=== PATIENT | female | born 1980 | race Caucasian/White ===

== ENCOUNTER 2021-12-26 09:15 | Outpatient (CLI) | payer MEDICAID, SELFPAY ==
[2021-12-26 11:15] LABS: Albumin* 4.4 g/dL (3.3-5.0); Chloride* 105 mmol/L (96-114)
[2021-12-26 11:16] LABS: Potassium* 5.2 mmol/L (3.6-5.1); Sodium* 139 mmol/L (135-149)
[2021-12-26 11:18] LABS: Alanine Aminotransferase* 37 U/L (4-35); Alkaline Phosphatase* 77 U/L (40-150); Aspartate Amino Transferase* 34 U/L (12-35); Bilirubin Total* 0.4 mg/dL (0.1-1.5); Blood Urea Nitrogen* 12 mg/dL (5-24); Calcium* 9.4 mg/dL (8.4-10.6); Carbon Dioxide* 26 mmol/L (20-32); Cholesterol* 237 mg/dL (90-199); Creatinine* 0.7 mg/dL (0.5-1.5); Estimated Glomerular Filt Rate 110 ml/min; Glucose* 118 mg/dL (60-115); Total Protein* 7.2 g/dL (6.0-8.3); Triglycerides* 291 mg/dL (40-149)
[2021-12-26 11:19] LABS: HDL Cholesterol* 41 mg/dL (>=50); LDL Cholesterol Calculated 138 mg/dL (<100)
== END 2021-12-26 09:16 | disposition home or self-care (01) ==
LOC: NFLDREF 09:17
PROVIDERS: PCP Family Medicine; Visit Provider Family Medicine
DX: Z00.00 Encounter for general adult medical examination without abnormal findings (principal); M19.90 Unspecified osteoarthritis, unspecified site; R73.03 Prediabetes; E78.5 Hyperlipidemia, unspecified
CPT/HCPCS: 80053; 80061

== ENCOUNTER 2022-01-18 11:15 | Outpatient (RCR) | payer MEDICAID, SELFPAY | END 2022-01-18 12:29 | disposition home or self-care (01) | PROVIDERS: PCP Family Medicine; Visit Provider Orthopaedic Surgery Sports Medicine | DX: M79.651 Pain in right thigh (principal); M25.561 Pain in right knee; Z51.89 Encounter for other specified aftercare | CPT/HCPCS: 97012; 97110; 97116; 97140 ==

== ENCOUNTER 2022-03-29 13:47 | Outpatient (CLI) | payer MEDICAID, SELFPAY ==
[2022-03-29 17:14] LABS: Chloride* 104 mmol/L (96-114); Sodium* 135 mmol/L (135-149)
[2022-03-29 17:15] LABS: Potassium* 4.2 mmol/L (3.6-5.1)
[2022-03-29 17:17] LABS: Creatinine* 0.6 mg/dL (0.5-1.5); Estimated Glomerular Filt Rate 114 ml/min
[2022-03-29 17:18] LABS: Blood Urea Nitrogen* 9 mg/dL (5-24); Calcium* 9.8 mg/dL (8.4-10.6); Carbon Dioxide* 21 mmol/L (20-32); Glucose* 132 mg/dL (60-115)
== END 2022-03-29 13:48 | disposition home or self-care (01) ==
LOC: NFLDREF 13:48
PROVIDERS: PCP Family Medicine; Visit Provider Family Medicine
DX: Z01.419 Encounter for gynecological examination (general) (routine) without abnormal findings (principal); R82.998 Other abnormal findings in urine
CPT/HCPCS: 80048

== ENCOUNTER 2022-03-30 15:00 | Outpatient (CLI) | payer MEDICAID, SELFPAY | END 2022-03-30 15:01 | disposition home or self-care (01) | LOC: NFLDREF 04-03 10:58 | PROVIDERS: PCP Family Medicine; Visit Provider Family Medicine | DX: R82.998 Other abnormal findings in urine (principal) | CPT/HCPCS: 87086 ==

== ENCOUNTER 2022-07-17 09:01 | Outpatient (CLI) | payer MEDICAID, SELFPAY ==
--- NOTE | 2022-07-17 09:15 | CRLHL7_ITS ---
For Patients: As a result of the Century Cures Act, medical imaging exams and procedure reports are released immediately into your electronic medical record. You may view this report before your referring provider. If you have questions, please contact your health care provider. INDICATION: Left arm numbness. COMPARISON: None. TECHNIQUE: Sagittal T1, T2, and STIR sequences. Axial T2/gradient sequences. FINDINGS: Straightening of the normal cervical lordosis which may be secondary to muscle spasm or patient positioning. Otherwise, normal vertebral body and facet alignment. No fractures. No vertebral body loss of height. No spondylolisthesis. No ligamentous injury. Normal marrow signal. No suspicious osseous lesions. Normal cord signal. No intradural mass or lesion. C1-2: No spinal canal narrowing. C2-3: No spinal canal or neural foraminal narrowing. C3-4: No spinal canal neural foraminal narrowing. C4-5: No spinal canal or neural foraminal narrowing. C5-6: Disc degeneration posterior disc bulge or disc osteophyte complex. Partial effacement of ventral thecal sac and mild narrowing of spinal canal. Uncovertebral joint hypertrophy results in mild narrowing of the right neural foramen. No narrowing of the left neural foramen. C6-7: No spinal canal or neural foraminal narrowing. C7-T1: No spinal canal or neural foraminal narrowing. IMPRESSION: 1. Straightening of the normal cervical lordosis. Otherwise, normal alignment. No fractures. 2. Normal cord signal. 3. At C5-6, mild narrowing of spinal canal and right neural foramina. 4. No spinal canal or neural foraminal narrowing at the remaining levels Dictated by Richardson Peck MD @ 07/17/2022 11:49:52 AM (Electronically Signed)
== END 2022-07-17 09:02 | disposition home or self-care (01) ==
LOC: MRI 09:02
PROVIDERS: PCP Family Medicine; Visit Provider Family Medicine
DX: R20.0 Anesthesia of skin (principal); M50.222 Other cervical disc displacement at C5-C6 level; M54.12 Radiculopathy, cervical region
CPT/HCPCS: 72141

== ENCOUNTER 2022-07-20 08:15 | Outpatient (CLI) | payer MEDICAID, SELFPAY ==
--- NOTE | 2022-07-20 09:00 | CRLHL7_ITS ---
For Patients: As a result of the Century Cures Act, medical imaging exams and procedure reports are released immediately into your electronic medical record. You may view this report before your referring provider. If you have questions, please contact your health care provider. Indication: HEMATOCHEZIA Technique: Postcontrast CT abdomen and pelvis. 138 cc Isovue 370 intravenous contrast. Please note that all CT scans at this facility use dose modulation, iterative reconstruction, and/or weight-based dosing when appropriate to reduce radiation dose to as low as reasonably achievable. Comparison: None Findings: Lung bases are clear. Visualized breast tissue normal. Diffuse low attenuation of the hepatic parenchyma consistent with fatty infiltration. Subcentimeter hypodensity in the right hepatic lobe is too small to characterize but likely represents a small cyst or hemangioma. Gallbladder is normal. Normal spleen. Normal pancreas. Normal adrenal glands. Kidneys are normal. Normal bladder. Uterus is normal. There is a collapsing ovarian cyst measuring 1.2 cm. Left adnexal paraovarian cyst noted measuring 4.9 cm. A small amount of free fluid is located in the posterior cul-de-sac. No bowel obstruction or free air. No free fluid or adenopathy. The appendix is normal. No evidence of colonic or small bowel wall thickening. No diverticulitis. Subcentimeter umbilical hernia containing fat. Mild diverticulosis noted within the left colon. No fracture is present. Degenerative facet arthropathy lower lumbar spine. Impression: Diffuse hepatic steatosis, moderate. Mild colonic diverticulosis. No diverticulitis. No bowel obstruction or evidence of colitis/enteritis. 1.2 cm collapsing ovarian cyst in left adnexal paraovarian cyst measuring 4.9 cm. Trace physiologic free fluid posteriorly. Please note that all CT scans at this facility use dose modulation, iterative reconstruction, and/or weight-based dosing when appropriate to reduce radiation dose to as low as reasonably achievable. Dictated by Yogesh Mallory MD @ 07/20/2022 12:40:59 PM (Electronically Signed)
== END 2022-07-20 08:16 | disposition home or self-care (01) ==
LOC: CT 08:16
PROVIDERS: PCP Family Medicine; Visit Provider Internal Medicine Gastroenterology
DX: K92.1 Melena (principal); K76.0 Fatty (change of) liver, not elsewhere classified; N83.202 Unspecified ovarian cyst, left side
CPT/HCPCS: 74177; Q9967

== ENCOUNTER 2022-09-26 12:00 | Outpatient (RCR) | payer MEDICAID, SELFPAY | END 2022-12-27 23:59 | disposition home or self-care (01) | PROVIDERS: PCP Family Medicine; Visit Provider Family Medicine | DX: M54.12 Radiculopathy, cervical region (principal); Z51.89 Encounter for other specified aftercare | CPT/HCPCS: 97110; 97162 ==

== ENCOUNTER 2022-12-24 08:30 | Outpatient (CLI) | payer MEDICAID, SELFPAY | END 2022-12-24 08:31 | disposition home or self-care (01) | LOC: NFLDREF 13:04 | PROVIDERS: PCP Family Medicine; Referring Provider Family Medicine; Visit Provider Family Medicine | DX: R73.03 Prediabetes (principal); E78.5 Hyperlipidemia, unspecified; K62.5 Hemorrhage of anus and rectum | CPT/HCPCS: 80053; 80061; 84597 ==

== ENCOUNTER 2023-01-01 14:24 | Outpatient (CLI) | payer MEDICAID, SELFPAY ==
--- NOTE | 2023-01-01 14:40 | CRLHL7_ITS ---
For Patients: As a result of the Century Cures Act, medical imaging exams and procedure reports are released immediately into your electronic medical record. You may view this report before your referring provider. If you have questions, please contact your health care provider. BILATERAL SCREENING MAMMOGRAM WITH COMPUTER-AIDED DETECTION TECHNIQUE: CC and MLO views were obtained. These mammographic images have been obtained using full-field digital technique. These mammographic images were interpreted with the benefit of computer-aided detection. COMPARISON FILM: 11/15/21, 05/27/19. FINDINGS: There are scattered areas of fibroglandular density IMPRESSION: There is no radiographic evidence for malignancy. ASSESSMENT: BI-RADS Category 1: Negative RECOMMENDATION: Routine screening mammogram in 1 year. A lay language report of this examination will be provided to the patient. Yogesh Mallory M.D. Diagnostic Radiologist [email or web address] ANIA/mary Transcribed: 3:04 p.mMarco A hernandez/Dictated by: Yogesh Mallory MD @ 01/02/2023 11:52:00 AM (Electronically Signed)
== END 2023-01-01 14:25 | disposition home or self-care (01) ==
LOC: MAMMO 14:24
PROVIDERS: PCP Family Medicine; Visit Provider Family Medicine
DX: Z12.31 Encounter for screening mammogram for malignant neoplasm of breast (principal)
CPT/HCPCS: 77063; 77067

== ENCOUNTER 2023-02-12 16:28 | Outpatient (CLI) | payer MEDICAID, SELFPAY | END 2023-02-12 16:29 | disposition home or self-care (01) | LOC: NFLDREF 16:28 | PROVIDERS: PCP Family Medicine; Visit Provider Family Medicine | DX: R53.83 Other fatigue (principal) | CPT/HCPCS: 80048 ==

== ENCOUNTER 2023-02-20 10:21 | Outpatient (CLI) | payer MEDICAID, SELFPAY | END 2023-02-20 10:22 | disposition home or self-care (01) | LOC: NFLDREF 02-21 14:08 | PROVIDERS: PCP Family Medicine; Visit Provider Family Medicine | DX: R53.83 Other fatigue (principal); R79.89 Other specified abnormal findings of blood chemistry; D64.9 Anemia, unspecified; K92.2 Gastrointestinal hemorrhage, unspecified | CPT/HCPCS: 82728; 84443; 84450; 84460 ==

== ENCOUNTER 2023-02-22 09:12 | Outpatient (CLI) | payer MEDICAID, SELFPAY ==
--- NOTE | 2023-02-22 09:15 | CRLHL7_ITS ---
For Patients: As a result of the Century Cures Act, medical imaging exams and procedure reports are released immediately into your electronic medical record. You may view this report before your referring provider. If you have questions, please contact your health care provider. INDICATION: Excessive and frequent menstruation COMPARISON: none TECHNIQUE: 2D faulkner scale and color Doppler images were acquired of the pelvis using a transabdominal and transvaginal approach. FINDINGS: Sonographic images demonstrate a normal size and smooth outer contour of the uterus. Uterus measures 6.6 cm in length by 4.4 cm in AP diameter by 4.9 cm in transverse dimension. The myometrium has a normal uniform echotexture. The endometrial lining measures 7 mm in composite thickness. The right ovary measures 4.0 x 3.2 x 2.5 cm in size and the left ovary measures 4.4 x 3.1 x 3.1 cm. The ovaries demonstrate normal arterial and venous blood flow on color Doppler analysis. There are no suspicious fluid collections within the cul-de-sac. Mildly collapsing simple left ovarian cyst measuring 2.5 x 2.1 x 3.0 cm. IMPRESSION: Endometrial thickness 7 millimeters. No endometrial fluid or uterine fibroid. Incidental collapsing left ovarian cyst measuring 3.0 cm. Dictated by Yogesh Mallory MD @ 02/22/2023 10:15:31 AM (Electronically Signed)
== END 2023-02-22 09:13 | disposition home or self-care (01) ==
LOC: US 09:13
PROVIDERS: PCP Family Medicine; Visit Provider Obstetrics & Gynecology
DX: N92.0 Excessive and frequent menstruation with regular cycle (principal); R93.89 Abnormal findings on diagnostic imaging of other specified body structures; N83.202 Unspecified ovarian cyst, left side
CPT/HCPCS: 76830; 76856

== ENCOUNTER 2023-02-27 12:38 | Emergency (ER) | payer MEDICAID, SELFPAY ==
[2023-02-27 12:55] VITALS: BP 175/81; PULSE 107; RESP 18; TEMP 36.3; O2SAT 99; BMI 42.0
[2023-02-27 14:01] VITALS: BP 153/84; PULSE 92; RESP 20; O2SAT 99
[2023-02-27 14:05] LABS: Appearance Urine Clear (Clear); Bilirubin Urine Negative (Negative); Blood Urine 3+ (Negative); Color Urine Yellow (Yellow); Glucose Urine Negative (Negative); Ketones Urine Negative (Negative); Leukocyte Esterase Urine 1+ (Negative); Nitrite Urine Negative (Negative); Protein Urine 1+ (Negative); Urobilinogen Urine 0.2 (0.2-1.0)
[2023-02-27 14:08] LABS: Ur HCG Qualitative* Negative (Negative)
[2023-02-27 14:09] LABS: Basophils Absolute Auto 0.07 K/uL (0.00-0.30); Basophils Percent Auto 1.1 % (0.0-3.0); Eosinophils Percent Auto 7.2 % (0.0-7.0); Hematocrit 27.7 % (33.0-51.0); Immature Granulocytes Pct Auto 1.6 %; Lymphocytes Absolute Auto 1.29 K/uL (0.90-2.90); Lymphocytes Percent Auto 20.6 % (20-44); Mean Corpuscular HGB Conc 28 gm/dL (32-36); Mean Corpuscular Hemoglobin 23 pg (26-34); Mean Corpuscular Volume 81 fL (80-100); Monocytes Percent Auto 11.2 % (0.0-11.0); Neutrophils Absolute Auto 3.66 K/uL (1.7-7.0); Neutrophils Percent Auto 58.3 % (42.0-72.0); Platelet Count* 556 K/uL (140-440); RDW Coefficient of Variation % 20.7 % (11.5-15.5); Red Blood Count 3.41 m/uL (4.00-5.20); White Blood Count* 6.27 K/uL (4.50-11.00)
[2023-02-27 14:13] LABS: Bacteria Urine Many; Mucus Urine Many; Squamous Epithelial Cell Urine Many (None-Few)
[2023-02-27 14:14] LABS: Hemoglobin* 7.8 gm/dL (12.0-16.0); Slide Review Reflex Yes
[2023-02-27 14:18] LABS: Immature Reticulocyte Fraction 44.2 % (3.0-15.9); Reticulocyte Hemoglobin Equivi 17.5 pg (29.0-35.0); Reticulocyte Percent 6.2 % (0.5-2.0); Reticulocytes Absolute 0.21 # (0.03-0.08)
--- NOTE | 2023-02-27 14:19 | ED.GENADULT ---
HPI - General Adult General Date Seen: 02/27/23 Chief complaint: Unspecified Complaint, Adult Stated complaint: Fatigue in limbs, lightheaded Time Seen by Provider: 02/27/23 12:39 Source: patient Mode of arrival: ambulatory Limitations: no limitations History of Present Illness HPI narrative: Patient is a 42-year-old female with a history of chronic GI bleeding and vaginal bleeding, fibromyalgia, arthritis presents emergency department for fatigue and leg pain. She states the symptoms have been going on since beginning of this month. She has been seen in primary care provider initially thought it was due to her blood pressure medication and she is now the blood pressure medication. Her blood pressure has been stable throughout this time but she still feeling symptomatic. They did check hemoglobin and shows she has a hemoglobin of 7.1 with a normocytic anemia. She is going to schedule an appointment hematology when I call her back at the end of this week. She does have chronic GI bleeding and vaginal bleeding. She states whenever she has a. She has a normally large amount of vaginal bleeding along with some rectal bleeding. She has had colonoscopies in these were normal return few years ago. She states she has she was told I think that she might have endometriosis and that is why she always has a small GI bleed whenever she has her period. She states she had a small menstrual cycle this past Saturday which she states with the been normal for her time I am but was unexpected due to her being on control specifically to stop her periods. She does see Ob. States she is felt a little better since symptoms initially started but has been plateaued over the past week or so but then got worse again today. She states it is still not as worse as initially over Labor Day weekend. Denies fevers, chills, lightheadedness, dizziness, chest pain, shortness of breath, abdominal pain, diarrhea, constipation, vision changes. Related Data Home Medications Medication Instructions Recorded Confirmed diclofenac sodium 1 % topical gel 4 g topical QID PRN 07/16/22 02/22/23 multivitamin (Daily Multi-Vitamin 1 tab PO QDAY 10/16/22 02/22/23 tablet) sodium chloride 2 % eye drops 1 drp ophthalmic (eye) QDAY 10/16/22 02/22/23 (Dwayne 128) magnesium 200 mg tablet 400 mg PO QDAY 12/27/22 02/22/23 methylcellulose (laxative) 500 mg 500 mg PO QDAY 02/22/23 02/22/23 tablet (Fiber Laxative (methylcellulose)) Previous Rx's Medication Instructions Recorded progesterone micronized 200 mg 200 mg PO QHS 10 days #30 caps 09/17/22 capsule (Prometrium) celecoxib 200 mg capsule 200 mg PO QDAY #90 caps 12/27/22 duloxetine 30 mg capsule,delayed 30 mg PO DAILY #90 caps 12/27/22 release epinephrine 0.3 mg/0.3 mL 0.3 mg (0.3 mL) IM .As Needed as 12/27/22 injection, auto-injector needed PRN anaphylaxis #2 ea ferrous sulfate 325 mg (65 mg 325 mg PO Q OTHER DAY #60 tabs 02/22/23 iron) tablet,delayed release Allergies Allergy/AdvReac Type Severity Reaction Status Date / Time erythromycin base Allergy Severe Hives Verified 02/22/23 13:48 bee venom protein (honey bee) Allergy Unknown swelling Verified 02/22/23 13:48 lisinopril AdvReac Cough Verified 02/22/23 13:48 Review of Systems Status of ROS: Reports: 10 or more systems reviewed and unremarkable except as noted in History and below [facility] Medical History Anemia ?D64.9 - Anemia, unspecified (ICD-10) COVID-19 ?U07.1 - COVID-19 (ICD-10) Right trigger finger ?M65.30 - Trigger finger, unspecified finger (ICD-10) Acute hemorrhoid ?K64.9 - Unspecified hemorrhoids (ICD-10) Ovarian cyst (05/11/10) ?N83.209 - Unspecified ovarian cyst, unspecified side (ICD-10) Tobacco use (06/18/09) ?Z72.0 - Tobacco use (ICD-10) Nephrolithiasis (08/16/09) ?N20.0 - Calculus of kidney (ICD-10) Menometrorrhagia (05/11/10) ?N92.1 - Excessive and frequent menstruation with irregular cycle (ICD-10) High glucose level ?R73.09 - Other abnormal glucose (ICD-10) Ganglion cyst of left foot ?M67.472 - Ganglion, left ankle and foot (ICD-10) Dyslipidemia (05/11/10) ?E78.5 - Hyperlipidemia, unspecified (ICD-10) Surgical History S/P trigger finger release (09/21/20) ?Z98.890 - Other specified postprocedural states (ICD-10) S/P right knee arthroscopy (08/23/09) ?Z98.890 - Other specified postprocedural states (ICD-10) S/P right knee arthroscopy (11/27/21) ?Z98.890 - Other specified postprocedural states (ICD-10) Myringotomy tube(s) status (08/16/09) ?Z96.22 - Myringotomy tube(s) status (ICD-10) Status post tonsillectomy and adenoidectomy (08/16/09) ?Z90.89 - Acquired absence of other organs (ICD-10) History of colonoscopy (11/28/20) ?Z98.890 - Other specified postprocedural states (ICD-10) Family History Paternal Grandfather Diabetes Stroke Maternal Grandmother Diabetes Stroke High blood pressure Maternal Grandfather Heart problem Brother Alcohol dependence Drug abuse Paternal Grandmother Thyroid disease Aunt Thyroid disease Mother High blood pressure Father Diabetes Other Depression Social History Narrative: SOCIAL HISTORY: 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 No children. She lives with her parents. She is involved in her nieces lives. Exercise 3-5x/wk - walk, pool, stretches, PT. HABITS: No tobacco or recreational drug use. Alcohol use is about 5 drinks per week. What is your current living situation?: I presently have a place to live Problems where you live: no known problems In the past 12 months, utilities in danger of being shut off: no In past 12 months, lack of transportation kept you from medical appts, meetings, work, or getting things needed for daily living: no In the past 12 mos, have been you worried that your food would run out before you had money to buy more?: never true In the past 12 mos, the food you bought just didn't last and you didn't have money to buy more?: never true Smoking Status: Former smoker (quit jul 2007) How often does anyone, including family, friends and others, physically hurt you: never How often does anyone, including family, friends and others, insult or talk down to you: rarely How often does anyone, including family, friends and others, threaten you with harm: rarely How often does anyone, including family, friends and others, scream or curse at you: rarely Little interest or pleasure in doing things: more than half the days Feeling down, depressed, or hopeless: nearly every day Exam Narrative: Exam Narrative: Const: Well-nourished, Well-developed, in mild distress Eyes: PERRL, no conjunctival injection, and symmetrical lids ENMT: Atraumatic external nose and ears. Moist mucous membranes. Neck: Symmetric, trachea midline, No thyromegaly. CVS: RRR, No murmurs or gallops. Peripheral pulses 2+ and equal in all extremities RESP: Unlabored respiratory effort. Clear to auscultation bilaterally. GI: Nontender/Nondistended, No rebound or guarding. MSK:Extremities w/o deformity, Normal Active ROM Skin: Warm, Dry. No rashes or lesions. Neuro: Normal Muscle tone, No focal neurological deficits. Psych: Awake, Alert, & Oriented x3. Appropriate mood and affect. Const: Vital Signs, click to edit/add: Vital Signs - 24 hr 02/27/23 12:55 02/27/23 14:01 02/27/23 14:51 Temperature 97.4 F L Pulse Rate [Pulse Oximeter] 107 H 92 86 Respiratory Rate 18 20 20 Blood Pressure [Ri ght Upper Arm] 175/81 H 153/84 H 168/78 H Pulse Oximetry 99 99 98 Oxygen Delivery Me thod Room Air Room Air Room Air Course Vital Signs Vital signs: Initial Vital Signs Temperature 97.4 F L 02/27/23 12:55 Temperature Source Temporal Artery Scan 02/27/23 12:55 Pulse Rate 107 H 02/27/23 12:55 Respiratory Rate 18 02/27/23 12:55 Blood Pressure 175/81 H 02/27/23 12:55 Blood Pressure Mean 112 H 02/27/23 12:55 Pulse Oximetry 99 02/27/23 12:55 Oxygen Delivery Method Room Air 02/27/23 12:55 Vital Signs Temperature 97.4 F L 02/27/23 12:55 Pulse Rate 107 H 02/27/23 12:55 Respiratory Rate 18 02/27/23 12:55 Blood Pressure 175/81 H 02/27/23 12:55 Pulse Oximetry 99 02/27/23 12:55 Oxygen Delivery Method Room Air 02/27/23 12:55 Temperature 97.4 F L 02/27/23 12:55 Pulse Rate 86 02/27/23 14:51 Respiratory Rate 20 02/27/23 14:51 Blood Pressure 168/78 H 02/27/23 14:51 Pulse Oximetry 98 02/27/23 14:51 Oxygen Delivery Method Room Air 02/27/23 14:51 Medical Decision Making MDM Narrative Medical decision making narrative: Patient is a 42-year-old female presented to emergency department for weakness and leg pains. This has been going on for a few weeks now it has been associated to a recent anemia and has been is discovered her. She does have chronic large amounts of vaginal bleeding and it GI bleeding associated with vaginal bleeding. They believe it might be from endometriosis. She is working on scheduling hematology appointment. She describes her leg pain is very restless in nature. Patient did have a hemoglobin of 7.11 week ago. She feels worse today than she did over the past week, but not as bad as she initially did 2 weeks ago. Considering blood caused her symptoms of likely anemia we will do a CBC, CMP, coags as flu, troponin, magnesium, UA analysis of the urine test into iron studies in ferritin. Reticulocyte count also ordered. Urinalysis appears contaminated and no clear signs of UTI. Patient's lab work shows hemoglobin 7.8 which is improved for her. She has a normocytic anemia with an elevated reticulocyte count. Her iron studies are normal. CMP shows no concerning abnormalities other than slightly elevated AST and ALT. It appeared says she has a normocytic anemia felt is likely from a disease process in not iron deficiency anemia or anemia of chronic disease. This is something she needs to follow up for the outpatient but could explain all of her symptoms. Patient will be discharged home and she is agreeable to this plan. Lab Data Labs: Lab Results 02/27/23 02/27/23 Range/Units 13:40 13:55 WBC 6.27 (4.50-11.00) K/uL RBC 3.41 L (4.00-5.20) m/uL Hgb 7.8 L* (12.0-16.0) gm/dL Hct 27.7 L (33.0-51.0) % MCV 81 (80-100) fL MCH 23 L (26-34) pg MCHC 28 L (32-36) gm/dL RDW Coeff of Christian 20.7 H (11.5-15.5) % Plt Count 556 H (140-440) K/uL Neut % (Auto) 58.3 (42.0-72.0) % Lymph % (Auto) 20.6 (20-44) % Murray % (Auto) 11.2 H (0.0-11.0) % Eos % (Auto) 7.2 H (0.0-7.0) % Baso % (Auto) 1.1 (0.0-3.0) % Neut # (Auto) 3.66 (1.7-7.0) K/uL Lymph # (Auto) 1.29 (0.90-2.90) K/uL Murray # (Auto) 0.70 (0.00-0.90) K/UL Eos # (Auto) 0.50 (0.00-0.50) K/uL Baso # (Auto) 0.07 (0.00-0.30) K/uL Abs Immat Gran (auto) 0.10 (0.00-0.30) K/uL Imm/Tot Granulo (auto) 1.6 % Diff Slide Review Acceptable Review (Acceptable) Absolute Retic 0.21 H (0.03-0.08) # Percent Retic 6.2 H (0.5-2.0) % Immature Retic Fraction 44.2 H (3.0-15.9) % Retic Hgb Equivalent 17.5 L (29.0-35.0) pg Sodium 139 (135-149) mmol/L Potassium 3.9 (3.6-5.1) mmol/L Chloride 106 (96-114) mmol/L Carbon Dioxide 24 (20-32) mmol/L Anion Gap 9 (7-15) mEq/L BUN 6 (5-24) mg/dL Creatinine 0.6 (0.5-1.5) mg/dL Estimated Creat Clear 120.70 Estimated GFR 113 ml/min Glucose 106 (60-115) mg/dL Calcium 8.9 (8.4-10.6) mg/dL Magnesium 2.3 (1.5-2.6) mg/dL Iron 163 (37-170) ug/dL TIBC 639 H (265-497) ug/dL % Saturation 26 (20-50) % Total Bilirubin 0.4 (0.1-1.5) mg/dL AST 63 H (12-35) U/L ALT 56 H (4-35) U/L Alkaline Phosphatase 66 (40-150) U/L Troponin I < 0.01 L (0.01-0.04) ng/mL Total Protein 7.3 (6.0-8.3) g/dL Albumin 4.5 (3.3-5.0) g/dL Urine Color Yellow (Yellow) Urine Appearance Clear (Clear) Urine pH 6.0 (5.0-8.5) Ur Specific Clover 1.020 (1.000-1.030) Urine Protein 1+ A (Negative) Urine Glucose (UA) Negative (Negative) Urine Ketones Negative (Negative) Urine Blood 3+ A (Negative) Urine Nitrite Negative (Negative) Urine Bilirubin Negative (Negative) Urine Urobilinogen 0.2 (0.2-1.0) Ur Leukocyte Esterase 1+ A (Negative) Urine RBC 5-10 A (0-2) Urine WBC 5-10 A (0-5) Ur Squamous Epith Cells Many A (None-Few) Urine Bacteria Many A (None) Urine Mucus Many A (None) Urine HCG, Qual Negative (Negative) SARS-CoV-2 (PCR) Negative SARS-CoV-2 (Negative) Influenza Type A (PCR) Negative PCR FLU A (Negative) Influenza Type B (PCR) Negative PCR FLU B (Negative) Blood Type A Positive Antibody Screen NEGATIVE ECG Data Attestation: I personally reviewed and interpreted this ECG as follows: Prior ECG tracings: not available for review Interpretation: Normal sinus rhythm rate 90 beats per minute, normal intervals, normal axis, no ST or T-wave abnormalities. Discharge Plan Discharge Clinical Impression: Anemia Qualifiers: Anemia type: unspecified type Qualified Code(s): D64.9 - Anemia, unspecified Patient Disposition: Home, Self-Care Condition: Stable Instructions: Anemia (ED) Additional Instructions: It appears as if you have a normocytic anemia. A supporting you follow-up with Hematology so they can order further lab work to better define what is the root cause of your anemia. Does not appear to be secondary to blood loss at this time. Return for new or worsening symptoms. Prescriptions: No Action diclofenac sodium 1 % gel 4 g topical QID PRN Rx Instructions: just filled - please keep on file magnesium 200 mg tablet 400 mg PO QDAY multivitamin [Daily Multi-Vitamin] Tablet 1 tab PO QDAY Dwayne 128 2 % drops 1 drp ophthalmic (eye) QDAY celecoxib 200 mg capsule 200 mg PO QDAY Qty: 90 3RF duloxetine 30 mg capsule,delayed release(DR/EC) 30 mg PO DAILY Qty: 90 3RF epinephrine 0.3 mg/0.3 mL auto-injector 0.3 mg IM .As Needed as needed PRN (Reason: anaphylaxis) Qty: 2 0RF Fiber Laxative(methylcellulos) 500 mg tablet 500 mg PO QDAY ferrous sulfate 325 mg (65 mg iron) tablet,delayed release (DR/EC) 325 mg PO Q OTHER DAY Qty: 60 0RF progesterone micronized [Prometrium] 200 mg capsule 200 mg PO QHS 10 Days Qty: 30 12RF Follow Up/Referrals: Duglas Barker MD [Primary Care Provider] - Stand Alone Forms: [employer] Info Instructions
[2023-02-27 14:40] LABS: Slide Review Acceptable Review (Acceptable)
[2023-02-27 14:51] VITALS: BP 168/78; PULSE 86; RESP 20; O2SAT 98
[2023-02-27 14:55] LABS: PCR FLU A Negative PCR FLU A (Negative); PCR FLU B Negative PCR FLU B (Negative)
[2023-02-27 15:01] LABS: Albumin* 4.5 g/dL (3.3-5.0); Chloride* 106 mmol/L (96-114)
[2023-02-27 15:02] LABS: Potassium* 3.9 mmol/L (3.6-5.1); Sodium* 139 mmol/L (135-149)
[2023-02-27 15:04] LABS: Alanine Aminotransferase* 56 U/L (4-35); Alkaline Phosphatase* 66 U/L (40-150); Anion Gap 9 mEq/L (7-15); Aspartate Amino Transferase* 63 U/L (12-35); Bilirubin Total* 0.4 mg/dL (0.1-1.5); Carbon Dioxide* 24 mmol/L (20-32); Creatinine* 0.6 mg/dL (0.5-1.5); Estimated Glomerular Filt Rate 113 ml/min; Total Protein* 7.3 g/dL (6.0-8.3)
[2023-02-27 15:05] LABS: Blood Urea Nitrogen* 6 mg/dL (5-24); Calcium* 8.9 mg/dL (8.4-10.6); Glucose* 106 mg/dL (60-115); Iron* 163 ug/dL (37-170); Magnesium* 2.3 mg/dL (1.5-2.6)
[2023-02-27 15:14] LABS: Percent Iron Saturation 26 % (20-50); Total Iron Binding Capacity 639 ug/dL (265-497)
[2023-02-27 15:15] LABS: SARS PCR* Negative SARS-CoV-2 (Negative)
[2023-02-27 15:18] LABS: Troponin I* < 0.01 ng/mL (0.01-0.04)
[2023-02-27 15:37] VITALS: BP 156/80; PULSE 89; RESP 18; O2SAT 98
[2023-02-27 16:08] LABS: Ferritin* 8.2 ng/mL (6.24-137.0)
== END 2023-02-27 15:40 | disposition home or self-care (01) ==
PROVIDERS: Emergency Provider Student in an Organized Health Care Education/Training Program; PCP Family Medicine
DX: D64.9 Anemia, unspecified (principal)
CPT/HCPCS: 36415; 80053; 81001; 81025; 82728; 83540; 83550; 83735; 84484; 85025; 85045; 86850; 86900; 86901; 87086; 87631; 93005; 99283; 99284

== ENCOUNTER 2023-03-15 14:20 | Outpatient (CLI) | payer MEDICAID, SELFPAY ==
--- NOTE | 2023-03-15 15:30 | CRLHL7_ITS ---
For Patients: As a result of the Century Cures Act, medical imaging exams and procedure reports are released immediately into your electronic medical record. You may view this report before your referring provider. If you have questions, please contact your health care provider. INDICATION: Low back pain. Right leg pain. TECHNIQUE: Noncontrast sagittal and axial T1, T2, and sagittal STIR sequences are provided. No comparisons. FINDINGS: The overall stature, alignment and intrinsic marrow signal of the lumbar spine is within normal limits. Conus is normal. L1-2, L2-3: Unremarkable. L3-4: Mild left posterior paracentral disc bulge and endplate osteophyte with moderate bilateral facet arthropathy and prominence of the dorsal epidural fat results in moderate central canal narrowing. Neural foramina are patent. L4-5: Mild broad-based posterior disc bulge with mild bilateral facet arthropathy results in no central canal or foraminal narrowing. L5-S1: Mild posterior central disc protrusion extends 4-5 millimeters beyond the posterior vertebral body margin with associated endplate osteophyte resulting in no significant central canal narrowing. Associated moderate bilateral facet arthropathy results in moderate bilateral foraminal narrowing. IMPRESSION: 1. Moderate bilateral L5-S1 foraminal narrowing. 2. Moderate L3-4 central canal narrowing. Dictated by Alexander Napier MD @ 03/15/2023 6:14:01 PM (Electronically Signed)
== END 2023-03-15 14:21 | disposition home or self-care (01) ==
LOC: MRI 14:21
PROVIDERS: PCP Family Medicine; Visit Provider Family Medicine
DX: M79.604 Pain in right leg (principal); M51.26 Other intervertebral disc displacement, lumbar region; M51.27 Other intervertebral disc displacement, lumbosacral region; M54.50 Low back pain, unspecified
CPT/HCPCS: 72148

== ENCOUNTER 2023-04-16 20:18 | Outpatient (CLI) | payer MEDICAID, SELFPAY ==
--- OUTSIDE RECORDS SUMMARY | 2023-04-16 20:22 | XMS_ITS | Continuity of Care Document ---
Author Name Unknown Organization [facility] Address [address] [address] [place] [address] Phone Care Team Providers Care Sole Seamer Name Role Phone Danny Zeng MD Unavailable Unavailable Allergies, Adverse Reactions, Alerts Substance Reaction Status Criticality erythromycin base HivesHives Active No Informa tion erythromycin base HivesHives Active No Informa tion lisinopril Cough Active No Information WARNIN allergy(ies) could not be collected because the type is not supported. Please contact the source practice for further details. Medications Medication Instructions Dosage Effective Dates (start - stop) Status Comments celecoxib 200 mg capsule take 1 capsule by oral route every day as needed 200 MG - Active MAGNESIUM (unknown strength) take 1 tablet (500 mg) by oral route twice a week. Not Available - Active MULTIVITAMINS WITH IRON (unknown strength) (200 mcg) take 1 tablet by oral route daily Not Available - Active diclofenac 1 % topical gel apply (2G) by topical route every day as needed 2 G - Active Dwayne 128 5 % eye ointment instill 1 drop by in eyes route every day 1 drop - Active EPINEPHRINE (unknown strength) inject 0.3 milliliter by intramuscular route once as needed for anaphylaxis Not Available - Active losartan 50 mg tablet take 1 tablet by oral route every day 50 MG - Active duloxetine 30 mg capsule,delayed release take 1 capsule by oral route every day 30 MG - Active Systane (PF) 0.4 %-0.3 % eye drops in a dropperette - Active medroxyprogesterone 10 mg tablet take 1 tablet by oral route every day for ten days every three months 10 MG - Active acetaminophen 500 mg capsule take 2 capsule by oral route every 6 hours as needed 1000 MG - Active Procedures Procedure Date Established Level 4 Hemorrhoid Banding Established Level 4 Hemorrhoid Banding Hemorrhoid Banding Colonoscopy Flex; Dx (sep Pro) 22 Small Bowel PillCam Capsule 1st Day Ugi Endo; W/bx 1/mx Level Iv-surg Path Gross/micro 21 Telephone E&M III 21-30 Min HARPAL Advance Directives Directive Yes / No Effective Date File Name No Information Encounters Encounter Description Practice Location Reason(s) For Visit Diagnoses Date Provider Providers Copied on Encounter [facility], [address] [address], [place], [place], [id number], [place] tel:[phone] [facility] No Information 3 Karri Delgado. [address] [facility], [facility] [address], [place], [place], [id number] , [place]. tel:[phone] Established Level 4 [facility], [address] [address], [place], [id number], [place] tel:[phone] [facility] GI Symptoms or Concerns (chief complaint) HematocheziaRight shoulder pain, unspecified chronicity 3 Karri Delgado. [address] [facility], [place], [place], [address] , [place]. [phone] Referring Provider: Referral Self. [facility], [address] [address], [place], [address], [place] tel:[phone] [facility] GI Symptoms or Concerns (chief complaint) Other hemorrhoids 2 Jg Crocker. [address] [facility], [place], [place], [address] , [place]. tel: [phone] Referring Provider: Referral Self. Established Level 4 [facility], [address] [address], [place], [id number], [place] tel:[phone] [facility] GI Symptoms or Concerns (chief complaint) HematocheziaAnal fissure 2 Karri Delgado. [address] [facility], [place], [address] , [place]. tel: [phone] Referring Provider: Referral Self. [facility], [address] [address], [place], [address], [place] tel:[phone] [facility] No Information 2 Karri Delgado. [address] [facility], [place], [address] , [place]. tel: [phone] [facility], [address] [address], [place], [address], [place] tel:[phone] [facility] GI Symptoms or Concerns (chief complaint) Other hemorrhoids 2 Jg Crocker. [address] [facility], [place], [address] , [place]. tel: [phone] Referring Provider: Referral Self. [facility], [address] [address], [place], [address], [place] tel:[phone] [facility] GI Symptoms or Concerns (chief complaint) Anal skin tagInternal hemorrhoids 2 Narciso Plummer. [address] [facility], [place], [address] , [place]. tel: [phone] Referring Provider: Referral Self. [facility], [address] [address], [place], [address], [place] tel:[phone] [facility] Gastrointestinal hemorrhage, unspecified 2 Karri Delgado. [address] [facility], [place], [address] , [place]. tel: [phone] [facility], [address] [address], [place], [address], [place] tel:[phone] [facility] GI Symptoms or Concerns (chief complaint) HematocheziaMelena 2 Karri Delgado. [address] [facility], [place], [address] , [place]. tel: [phone] Referring Provider: Duglas Barker MD, [address] [place] [address], [address]. tel:[phone] [facility], [address] [address], [place], [address], [place] tel:[phone] [facility] Gastrointestinal hemorrhage, unspecified 1 [facility]. [address] [facility], [place], [address] , [place]. tel: [phone] Referring Provider: Danny Ferro, [address] [facility] [address], [place], [address] . tel:[phone] [facility], [address] [address], [place], [address], [place] tel:[phone] [facility] No Information 1 Karri Delgado. [address] [facility] [address], [place], [address] , [place]. tel: [phone] Referring Provider: Referral Self. [facility], [address] [address], [place], [address], [place] tel:[phone] [facility] No Information 1 Cristina Mcmahon. [address] [facility] [address], [place], [address] , [place]. tel: [phone] [facility], [address] [address], [place], [address], [place] tel:[phone] [facility] Gastrointestinal hemorrhage, unspecified gastrointestinal hemorrhage typeGastrointestina l hemorrhage, unspecified 1 Karri Delgado. [address] [facility], [facility] [address], [facility] [place], [address] , [place]. [phone] Referring Provider: Referral Self. Telephone E&M III 21-30 Min HARPAL [facility], [address] [address], [place], [address], [place] tel:[phone] [facility] GI Symptoms or Concerns (chief complaint) Gastrointestinal hemorrhage, unspecified gastrointestinal hemorrhage type 1 Karri Delgado. [address] [facility], [facility] [address], [place], [address] , [place]. [phone] Referring Provider: Edilia Vera, [address], [place], [address]. tel:[phone] [facility], [address] [address], [place], [address], [place] tel:[phone] [facility] No Information 1 Cristina Mcmahon. [address] [facility], [facility] [address], [facility] [place], [address] , [place]. [phone] Family History Family Member Type Diagnosis Age At Onset Father Problem (finding) asthma Brother Problem (finding) alcoholism Father Problem (finding) GERD Immunizations Vaccine Date Status Comments SARS-COV-2 (COVID-19) vaccin e, mRNA, spike protein, LNP, bivalent booster, preservative free, 30 mcg/0.3 mL dose, dafne-sucrose formulation administered Note: [employer] bi-d irectional interface ; Source: Other Registry SARS-COV-2 (COVID-19) vaccin e, mRNA, spike protein, LNP, preservative free, 30 mcg/0.3mL dose administered Note: [employer] bi-direct ional interface ; Source: Other Registry SARS-COV-2 (COVID-19) vaccin e, mRNA, spike protein, LNP, preservative free, 30 mcg/0.3mL dose administered Note: [facility] bi-direct ional interface ; Source: Other Registry SARS-COV-2 (COVID-19) vaccin e, mRNA, spike protein, LNP, preservative free, 30 mcg/0.3mL dose administered Note: [facility] bi-direct ional interface ; Source: Other Registry tetanus toxoid, reduced diphtheria toxoid, and acellular pertussis vaccine, adsorbed administered Note: [facility] b i-directional interface ; Source: Other Registry Payers Payer name Insurance type Covered constitution party ID Authormanuela apple(s) Chantale WEINER [id number] Social History Type Description Quantity Date Captured Comments Sex Female Smoking Status No Information Chief Complaint And Reason For Visit No Information Reason For Referral Reason For Referral No Information Plan Of Treatment Date Type Action Status Referral Ordered: CT Abdomen And Pelvis WITH Contrast Appointment date/timeframe: 08/01/2022 ordered Referral Ordered: Hemorrhoid Banding Appointment date/timeframe: 09/05/2021 ordered Referral Ordered: Small Bowel PillCam Appointment date/timeframe: 03/27/2021 ordered Referral Ordered: EGD Appointment date/timeframe: 02/24/2021 ordered History Of Present Illness Encounter Date Complaint History Of Prese nt Illness GI Symptoms or Concerns Gianna is a very pleasant 42-year-old female with whom I am conducting a virtual visit. The patient gave informed consent for the visit, confirmed she was in a private location. The patient has been dealing with issues with hematochezia for the last 2 years. Initially, she had had a colonoscopy in [place] that showed a questionable AVM in the right side of the colon. Ultimately, we pursued upper endoscopy here on February 24, 2021, that was unremarkable. A PillCam study was done on March 27, 2021, and that showed no significant abnormalities. There was a very questionable finding in the terminal ileum that was non-bleeding of questionable significance. The patient had a colonoscopy on June 16, 2021. No right-sided AVM was noted, although it is certainly possible this was not seen, and was not actually bleeding at that time. Since that time, the patient has undergone banding, most recently in April of this year. She can differentiate 2 types of bleeding and states GI Symptoms or Concerns GI Symptoms or Concerns Gianna Adan is a pleasant 41-year-old female, who I am seeing in a virtual visit. The patient gave informed consent for the visit and confirmed she was in a private location. The patient has been following with me since last year regarding hematochezia of unknown etiology. She had a colonoscopy in [place] that showed a questionable angioectasia in November 2020. Subsequently, we performed an upper endoscopy on February 24, which showed no significant abnormalities. After much discussion, we pursued a PillCam, which showed a very questionable finding in the distal small bowel, but not an obvious bleeding point. Colonoscopy was repeated with the idea of possibly treating the angioectasia noted in [place]; however, after review of the pictures, this appears to have been scope trauma and there was no evidence of right-sided angioectasia in the colon on June 10 of this year. Since then, the patient has undergone banding x2, which was somewhat complicated and described GI Symptoms or Concerns GI Symptoms or Concerns GI Symptoms or Concerns GI Symptoms or Concerns Gianna Adan is a pleasant 40-year-old female who is referred by Dr. Edilia Heller for further evaluation of gastrointestinal bleeding of unknown etiology. This was conducted as a telephone visit. The patient gave consent for the visit and confirmed that she was in a private location so as not to reveal private health information. The patient states that she has been having menorrhagia for at least 10 years, but over the last 6 months she has noted some rectal bleeding. She had a colonoscopy that was performed on November 28, which showed 1 sessile serrated adenoma, 3 hyperplastic polyps and a non-bleeding angioectasia with hepatic flexure. Internal hemorrhoids were noted, however, the patient states that she is able to tell the difference between her hemorrhoidal bleeding and this occult etiology bleeding. Her hemorrhoidal bleeding tends to be very bright red blood that is only associated with stooling, however, this bleeding she describes as being dark and can include clots. It Functional Status Date Functional Assessmen t No Information Instructions Date Instruction Additional Infor taty 1. Start fiber suppl ement Metamucil or Konsyl 2 tablespoons every morning. If not well tolerated try Citrucel or Benefiber. Drink 8 to 10 glasses of water a day. 2. Avoid pushing and straining on stools. Avoid sitting on the toilet for a long time.3. Follow up but wait 1 - 2 months Related to Internal hemorrhoids Assessments Type Assessment Date No Information Patient Care Teams Name Effective Dates (start - stop) Status Members No Information
== END 2023-04-16 20:19 | disposition home or self-care (01) ==
LOC: SLEEP 20:20
PROVIDERS: PCP Family Medicine; Visit Provider Otolaryngology
DX: G47.33 Obstructive sleep apnea (adult) (pediatric) (principal)
CPT/HCPCS: 95811

== ENCOUNTER 2023-08-14 10:00 | Outpatient (CLI) | payer MEDICAID, SELFPAY | END 2023-08-14 10:01 | disposition home or self-care (01) | LOC: NFLDREF 10:01 | PROVIDERS: PCP Family Medicine; Visit Provider Otolaryngology | DX: G25.81 Restless legs syndrome (principal) | CPT/HCPCS: 82728 ==

== ENCOUNTER 2023-10-16 14:01 | Outpatient (CLI) | payer MEDICAID, SELFPAY ==
--- OUTSIDE RECORDS SUMMARY | 2023-10-16 14:06 | XMS_ITS | Clinical Summary ---
Author Name Unknown Organization [facility] Address [address] [place] [address] Care Team Providers Care Dry Pan Charger Name Role Phone Unavailable Primary Care Provider Unavailabl e Source Comments You are receiving this document as you are listed as the primary care provider,follow-up provider, or the patient has been referred to you for consultation.This is in compliance with the Medicare and[facility] EHR Incentive Program,which states Providers who transition their patient to another setting of careor provider of care or refers their patient to another provider of care shouldprovide summary care record for each transition of care or referral. [facility] Allergies Active Allergy Reactions Criticality Noted Date Comments Bee Venom Edema,generalized High 10/22/2019 Erythromycin Hives High 10/22/2019 Medications Medication Sig Dispensed Refills Start Date End Date Status losartan (COZAAR) 25 MG tablet Take 25 mg by mouth daily. Active celecoxib (CELEBREX) 100 MG capsule Take 100 mg by mouth daily. Active Multiple Vitamins-Iron (MULTIVITAMIN/IRON OR) Ac tive Active Problems Problem Noted Date Diagnosed Date Primary osteoarthritis of both knees 10/22/2019 Essential hypertension 10/22/2019 Overweight 10/22/2019 Chronic pain syndrome 10/22/2019 Social History Tobacco Use Types Packs/Day Years Used Date Smoking Tobacco: Never Assessed Sex and Gender Information Value Date Recorded Sex Assigned at Not on file Gender Identity Not on file Sexual Orientation Not on file Last Filed Vital Signs Vital Sign Reading Time Taken Comments Blood Pressure 187/110 10/22/2019 9:41 AM CDT Pulse 99 10/22/2019 9:41 AM CDT Temperature 36.8 ??C (98.2 ??F) 10/22/2019 9:41 AM CD T Respiratory Rate - - Oxygen Saturation - - Inhaled Oxygen Concentration - - Weight 119 kg (262 lb 4.8 oz) 10/22/2019 9:41 AM CDT Height 174.2 cm (5' 8.6) 10/22/2019 9:41 AM CDT Body Mass Index 39.19 10/22/2019 9:41 AM CDT Plan of Treatment Health Maintenance Due Date Last Done Comments Cervical Cancer Screening Due 1978 Colon Cancer Screening Plan Due 1978 Hep C Screening (Preventive Services) 1978 HIV Screening (Preventive Services) 1994 Adult Preventive Visit 1996 DTaP/Tdap/Td (1 - Tdap) 1997 HepB (1) 1997 COVID-19 Vaccine ( - 2022-2 4 season) 2023 Cholesterol 2023 Influenza (Season Ended) 2024 Zoster/Shingles (1 of 2) 2028 HPV Vaccine Aged Out No longer eligi ble based on patient's age to complete this topic HepA Aged Out No longer eligi ble based on patient's age to complete this topic Hib Aged Out No longer eligi ble based on patient's age to complete this topic IPV (Polio) Aged Out No longer eligi ble based on patient's age to complete this topic MCV4 Aged Out No longer eligi ble based on patient's age to complete this topic Pneumococcal Aged Out No longer eligi ble based on patient's age to complete this topic
--- OUTSIDE RECORDS SUMMARY | 2023-10-16 14:06 | XMS_ITS | Clinical Summary ---
Author Name Unknown Organization [facility] Address [place], [place] [address] Care Team Providers Care Commissary Representative Name Role Phone Duglas Barker MD Primary Care Provider [phone] Allergies Active Allergy Reactions Criticality Noted Date Comments Hymenoptera Allergenic Extract 09/18 Erythromycin Hives 09/19/2007 Medications Medication Sig Dispensed Refills Start Date End Date Status TYLENOL 325 MG TAB PRN 0 09/19/2007 Active Social History Tobacco Use Types Packs/Day Years Used Date Smoking Tobacco: Former Alcohol Use Standard Drinks/Week Comments Not Asked 0 (1 standard drink = 0.6 oz pur e alcohol) Sex and Gender Information Value Date Recorded Sex Assigned at Not on file Gender Identity Not on file Sexual Orientation Not on file Obstetrics History Last Filed Vital Signs Vital Sign Reading Time Taken Comments Blood Pressure 135/83 09/19/2007 11:10 AM CDT Pulse 74 09/19/2007 11:10 AM CDT Temperature 36.6 ??C (97.9 ??F) 09/19/2007 11:10 AM C DT Respiratory Rate - - Oxygen Saturation - - Inhaled Oxygen Concentration - - Weight 99.3 kg (219 lb) 09/19/2007 11:10 AM CDT Height - - Body Mass Index - - Plan of Treatment Health Maintenance Due Date Last Done Comments Tdap 1989 Depression screening for age 12+ 1990 HIV for age 15-65 1993 BMI (ht and wt on same day) for age 18+ 1996 Hepatitis C screening for age 18-79 1996 Tetanus booster 1998 Pap test for age 21-65 05/21/2022 05/21/2019, 2018 COVID-19 vaccine series ( season) 2023 05/17/2022, 07/20/2021, 01/10/2021, Additional history exists Colonoscopy through age 75 2023 Lipids for age 45-75 2023 Mammogram for age 45-75 2023 Influenza for age 9-49 02/09/2024 Pneumococcal series for age 6-64 Aged Out No longer eligible based on patient's age to complete this topic Procedures Procedure Name Priority Date/Time Associated Diagnosis Comments INSIDE SALES PERSON THIN PREP PAP SCREEN IMAGED Routine 05/21/2019 8:23 AM ROCK SPLITTER from Last 3 Months or Most Recently Relevant to Health Maintenance Results * INSIDE SALES PERSON THIN PREP PAP SCREEN IMAGED (05/21/2019 8:23 AM ROCK SPLITTER) Case Report Gynecologic Cytology Report ? Case: [id number] ? Authorizing Provider: ??Duglas Barker MD ?Collected: ? 05/21/2019 0823 ? Ordering Location: ? [facility] ?Received: ?05/22/2019 0940 ? First Screen: ?Jo Berrios ? Specimen: ?INSIDE SALES PERSON ThinPrep Vial Screening, Cervical/Vaginal ? 05/31/2019 9:37 AM [facility] INTERPRETATION /RESULT NEGATIVE FOR INTRAEPITHELIAL LESION OR MALIGNANCY (NIL) (none) 05/31/2019 9:37 AM [facility] IMEN ADEQUACY Satisfactory for evaluation Endocervical component present 05/31/2019 9:37 AM [facility] HPV REQUEST HPV and PAP 05/31/2019 9:37 AM [facility] Date of LMP 05/31/2019 9:37 AM [facility] Comment:02/2019 Additional Information 05/31/2019 9:37 AM [facility] Comment: Interpreted at [facility] - [address], [place] [address] Automated Review Failed 05/31/2019 9:37 AM [facility] Comment:Processing failed, m anual screening required. ThinPrep Imaging System, [employer] ANCILLARY TESTING INSIDE SALES PERSON HPV Ordered, Please see separate report 05/31/2019 9:37 AM [facility] Note The pap test is a screening technique, not a diagnostic procedure. ??It is used primarily to screen for squamous cancers and precursor lesions. ??Published studies have shown that it is subject to both false negative and false positive results. ??The pap test should not be used as the sole means to diagnose or exclude pre-malignant and malignant lesions. Cytology is screened and interpreted at [facility] - [address], [place] [address] and [facility] - [address] [place] [address]; [place] [address] and [facility] - [address]; [place] [address] and [facility] [address]; [place] [address] 05/31/2019 9:37 AM [facility] Other (Cervical/Vagina l) 05/21/2019 8:23 AM ROCK SPLITTER 05/22/2019 9:40 AM ROCK SPLITTER Duglas Barker MD PATHOLOGY/CYTOLOGY [facility] [facility] [address] [place] [address], from Last 3 Months or Most Recently Relevant to Health Maintenance Care Teams Commissary Representative Relationship Specialty Start Date End Date Duglas Barker MD [address] [place] [id number] PCP - General Family Practice 11/28/22
== END 2023-10-16 14:02 | disposition home or self-care (01) ==
PROVIDERS: PCP Family Medicine; Visit Provider Internal Medicine
DX: D64.9 Anemia, unspecified (principal)
CPT/HCPCS: 82728; 85045

== ENCOUNTER 2023-10-18 11:14 | Outpatient (CLI) | payer MEDICAID, SELFPAY ==
--- OUTSIDE RECORDS SUMMARY | 2023-10-18 11:19 | XMS_ITS | Clinical Summary ---
Author Name Unknown Organization [facility] Address [place], [place] [address] Care Team Providers Care Picker Tender Helper Name Role Phone Duglas Barker MD Primary Care Provider [phone] Allergies Active Allergy Reactions Criticality Noted Date [...] Procedure Name Priority Date/Time Associated Diagnosis Comments LOSS CONTROL TECHNICIAN THIN PREP PAP SCREEN IMAGED Routine 05/21/2019 8:23 AM PULLMAN CAR CLERK from Last 3 Months or Most Recently Relevant to Health Maintenance Results * LOSS CONTROL TECHNICIAN THIN PREP PAP SCREEN IMAGED (05/21/2019 8:23 AM PULLMAN CAR CLERK) Case Report Gynecologic Cytology Report ? Case: [id number] ? Authorizing Provider: ??Duglas Barker MD ?Collected: ? 05/21/2019 0823 ? Ordering Location: ? [facility] ?Received: ?05/22/2019 0940 ? First Screen: ?Jo Berrios ? Specimen: ?LOSS CONTROL TECHNICIAN ThinPrep Vial Screening, Cervical/Vaginal ? 05/31/2019 9:37 AM [facility] INTERPRETATION /RESULT NEGATIVE FOR INTRAEPITHELIAL LESION OR MALIGNANCY (NIL) (none) 05/31/2019 9:37 AM [facility] IMEN ADEQUACY Satisfactory for evaluation Endocervical component present 05/31/2019 9:37 AM [facility] HPV REQUEST HPV and PAP 05/31/2019 9:37 AM [facility] Date of LMP 05/31/2019 9:37 AM [facility] Comment:02/2019 Additional Information 05/31/2019 9:37 AM [facility] Comment: Interpreted at [facility] - [address], [place] [address] Automated Review Failed 05/31/2019 9:37 AM [facility] Comment:Processing failed, m anual screening required. ThinPrep Imaging System, [employer] ANCILLARY TESTING LOSS CONTROL TECHNICIAN HPV Ordered, Please see separate report 05/31/2019 9:37 AM [facility] Note The pap test is a [...] lesions. Cytology is screened and interpreted at [facility] - [address], [place] [address] and [facility] - [address] [place] [address]; [place] [address] [address] [facility] - [address]; [place] [address] and [facility] [address]; [place] [address] 05/31/2019 9:37 AM [facility] Other (Cervical/Vagina l) 05/21/2019 8:23 AM PULLMAN CAR CLERK 05/22/2019 9:40 AM PULLMAN CAR CLERK Duglas Barker MD PATHOLOGY/CYTOLOGY [facility]ATORY [address] [place] [address], from Last 3 Months or Most Recently Relevant to Health Maintenance Care Teams Picker Tender Helper Relationship Specialty Start Date End Date Duglas Barker MD [address] [place] [id number] PCP - General Family Practice 11/28/22
--- OUTSIDE RECORDS SUMMARY | 2023-10-18 11:19 | XMS_ITS | Clinical Summary ---
Author Name Unknown Organization [facility] Address [address] [place] [address] Care Team Providers Care Maintainer Plant Name Role Phone Unavailable Primary Care Provider Unavailabl e Source Comments You are receiving this document as you are listed as the primary care provider,follow-up provider, or the patient has been referred to you for consultation.This is in compliance with the Medicare and[facility] EHR Incentive Program,which states Providers who transition their patient to another setting of careor provider of care or refers their patient to another provider of care shouldprovide summary care record for each transition of care or referral. [facility] Allergies Active Allergy Reactions Criticality Noted Date [...]
== END 2023-10-18 11:15 | disposition home or self-care (01) ==
LOC: LAB 11:16
PROVIDERS: PCP Family Medicine; Visit Provider Internal Medicine
DX: R79.0 Abnormal level of blood mineral (principal)
CPT/HCPCS: 36415; 99195

== ENCOUNTER 2023-10-31 10:13 | Outpatient (CLI) | payer MEDICAID, SELFPAY ==
--- NOTE | 2023-10-31 10:15 | US_ITS ---
Patient: ASHLI RIOS Facility:?[facility] Patient ID:?[id number] Site Patient ID:?[id number]. Site :?1980 Study:?US-Extremity Left LEV-10/31/2023 10:43:52 AM Ordering Physician:Joyce Ardon Final Report: INDICATION: Leg pain. TECHNIQUE: Ultrasound venous duplex lower left extremity. Compression venous exam was performed using faulkner-scale, color Doppler, and spectral Doppler analysis. COMPARISON: None available. FINDINGS: Deep veins: Sonographic imaging demonstrates the left common femoral, deep femoral, superficial femoral, popliteal, posterior tibial, peroneal and the contralateral right common femoral veins to be fully compressible with normal color Doppler blood flow. Superficial veins: Visualized portions of the greater saphenous vein are fully compressible. IMPRESSION: Normal left lower extremity venous ultrasound, no sign of deep venous thrombosis. Dictated by Clementine Quach MD @ 10/31/2023 11:07:58 AM Signed by:?Clementine Quach MD @10/31/2023 11:07:58 AM (Electronic Signature)
--- OUTSIDE RECORDS SUMMARY | 2023-10-31 10:17 | XMS_ITS | Clinical Summary ---
Author Organization [facility] Address [place], [place] [address] Care Team Providers Care Travel Guide Name Role Phone Duglas Barker MD Primary Care Provider [phone] Allergies Active Allergy Reactions Criticality Noted Date [...] Procedure Name Priority Date/Time Associated Diagnosis Comments JOB PUTTER UP AND TICKET PREPARER THIN PREP PAP SCREEN IMAGED Routine 05/21/2019 8:23 AM FOOD SAFETY TECHNICIAN from Last 3 Months or Most Recently Relevant to Health Maintenance Results * JOB PUTTER UP AND TICKET PREPARER THIN PREP PAP SCREEN IMAGED (05/21/2019 8:23 AM FOOD SAFETY TECHNICIAN) Case Report Gynecologic Cytology Report ? Case: [id number] ? Authorizing Provider: ??Duglas Barker MD ?Collected: ? 05/21/2019 0823 ? Ordering Location: ? [facility] ?Received: ?05/22/2019 0940 ? First Screen: ?Jo Berrios ? Specimen: ?JOB PUTTER UP AND TICKET PREPARER ThinPrep Vial Screening, Cervical/Vaginal ? 05/31/2019 9:37 AM [facility] INTERPRETATION /RESULT NEGATIVE FOR INTRAEPITHELIAL LESION OR MALIGNANCY (NIL) (none) 05/31/2019 9:37 AM [facility] IMEN ADEQUACY Satisfactory for evaluation Endocervical component present 05/31/2019 9:37 AM [facility] HPV REQUEST HPV and PAP 05/31/2019 9:37 AM [facility] Date of LMP 05/31/2019 9:37 AM [facility] Comment:02/2019 Additional Information 05/31/2019 9:37 AM [facility] Comment: Interpreted at [facility] - [address], [place] [address] Automated Review Failed 05/31/2019 9:37 AM [facility] Comment:Processing failed, m anual screening required. ThinPrep Imaging System, [employer] ANCILLARY TESTING JOB PUTTER UP AND TICKET PREPARER HPV Ordered, Please see separate report 05/31/2019 9:[address] [facility] Note The pap test is a [...] lesions. Cytology is screened and interpreted at [facility] - [address], [place] [address] and [facility] - [address] [place] [address]; [place] [address] and [facility] - [address]; [place] [address] [facility] [address]; [place] [address] 05/31/2019 9:37 AM [facility] Other (Cervical/Vagina l) 05/21/2019 8:23 AM FOOD SAFETY TECHNICIAN 05/22/2019 9:40 AM FOOD SAFETY TECHNICIAN Duglas Barker MD PATHOLOGY/CYTOLOGY [facility] [address] [employer] [address] [place] [address], from Last 3 Months or Most Recently Relevant to Health Maintenance Care Teams Travel Guide Relationship Specialty Start Date End Date Duglas Barker MD [address] [place] [address] PCP - General Family Practice 11/28/22
--- OUTSIDE RECORDS SUMMARY | 2023-10-31 10:17 | XMS_ITS | Clinical Summary ---
Author Organization [facility] Address [address] [address] Care Team Providers Care Funding Coordinator Name Role Phone Unavailable Primary Care Provider Unavailabl e Source Comments You are receiving this document as you are listed as the primary care provider,follow-up provider, or the patient has been referred to you for consultation.This is in compliance with the Medicare andMedicaid EHR Incentive Program,which states Providers who transition their patient to another setting of careor provider of care or refers their patient to another provider of care shouldprovide summary care record for each transition of care or referral. [facility] Allergies Active Allergy Reactions Criticality Noted Date [...]
== END 2023-10-31 10:14 | disposition home or self-care (01) ==
LOC: US 10:14
PROVIDERS: PCP Family Medicine; Visit Provider Family Medicine
DX: M79.605 Pain in left leg (principal)
CPT/HCPCS: 93971

== ENCOUNTER 2023-12-26 07:43 | Outpatient (CLI) | payer MEDICAID, SELFPAY ==
--- OUTSIDE RECORDS SUMMARY | 2023-12-29 03:53 | XMS_ITS | Clinical Summary ---
Author Organization [facility] Address [place], [place] [address] Care Team Providers Care Manager Of Data Name Role Phone Duglas Barker MD Primary Care Provider [phone] Allergies Active Allergy Reactions Criticality Noted Date [...] Procedure Name Priority Date/Time Associated Diagnosis Comments HAY CHOPPER THIN PREP PAP SCREEN IMAGED Routine 05/21/2019 8:23 AM SOFT METALS ENGRAVER HAND from Last 3 Months or Most Recently Relevant to Health Maintenance Results * HAY CHOPPER THIN PREP PAP SCREEN IMAGED (05/21/2019 8:23 AM SOFT METALS ENGRAVER HAND) Case Report Gynecologic Cytology Report ? Case: [id number] ? Authorizing Provider: ??Duglas Barker MD ?Collected: ? 05/21/2019 0823 ? Ordering Location: ? [facility] ?Received: ?05/22/2019 0940 ? First Screen: ?Jo Berrios ? Specimen: ?HAY CHOPPER ThinPrep Vial Screening, Cervical/Vaginal ? 05/31/2019 9:37 AM [facility] INTERPRETATION /RESULT NEGATIVE FOR INTRAEPITHELIAL LESION OR MALIGNANCY (NIL) (none) 05/31/2019 9:37 AM [facility] IMEN ADEQUACY Satisfactory for evaluation Endocervical component present 05/31/2019 9:37 AM [facility] HPV REQUEST HPV and PAP 05/31/2019 9:37 AM [facility] Date of LMP 05/31/2019 9:37 AM [facility] Comment:02/2019 Additional Information 05/31/2019 9:37 AM [facility] Comment: Interpreted at [facility] - [address], [place] [address] Automated Review Failed 05/31/2019 9:37 AM [facility] Comment:Processing failed, m anual screening required. ThinPrep Imaging System, [employer] ANCILLARY TESTING HAY CHOPPER HPV Ordered, Please see separate report 05/31/2019 9:[address] [facility] Note The pap test is a [...] is screened and interpreted at [facility] - [address], [place] [address] and [facility] - [address] [place] [address]; [place] [address] and [facility] - [address]; [place] [address] and [facility] [address]; [place] [address] 05/31/2019 9:37 AM [facility] Other (Cervical/Vagina l) 05/21/2019 8:23 AM SOFT METALS ENGRAVER HAND 05/22/2019 9:40 AM SOFT METALS ENGRAVER HAND Duglas Barker MD PATHOLOGY/CYTOLOGY [facility]AL LABORATORY [address] [employer]. [address] [place] [address], from Last 3 Months or Most Recently Relevant to Health Maintenance Care Teams Manager Of Data Relationship Specialty Start Date End Date Duglas Barker MD [address] [place] [address] PCP - General Family Practice 11/28/22
--- OUTSIDE RECORDS SUMMARY | 2023-12-29 03:53 | XMS_ITS | Continuity of Care Document ---
Author Organization [facility] Address [address] [address] [place] [address] Phone Care Team Providers Care Gun Numberer Name Role Phone Danny Zeng MD Unavailable [...] Diagnoses Date Provider Providers Copied on Encounter [facility], [address] [address], [place], [id number], [place] tel:[phone] [facility] No Information 3 Karri Delgado. [address] [address], [place], [place], [id number] , [place]. [phone] Established Level 4 [facility], [address] [address], [place], [id number], [place] tel:[phone] [facility] GI Symptoms or Concerns (chief complaint) HematocheziaRight shoulder pain, unspecified chronicity 3 Karri Delgado. [address], [place], [place], [address] , [place]. [phone] Referring Provider: Referral Self, USE FOR SELF REFERRALS. [facility], [address] [address], [place], [id number], [place] tel:[phone] [facility] GI Symptoms or Concerns (chief complaint) Other hemorrhoids 2 Jg Crocker. [address], [place], [place], [address] , [place]. tel: [phone] Referring Provider: Referral Self, USE FOR SELF REFERRALS. Established Level 4 [facility], [address] [address], [place], [id number], [place] tel:[phone] [facility] GI Symptoms or Concerns (chief complaint) HematocheziaAnal fissure 2 Karri Delgado. [address], [place], [place], [address] , [place]. tel: [phone] Referring Provider: Referral Self, USE FOR SELF REFERRALS. [facility], [address] [address], [place], [id number], [place] tel:[phone] [facility] No Information 2 Karri Delgado. [address], [facility] [address], [place] [facility] [place], [address] , [place]. tel: [phone] [facility], [address] [address], [place], [address], [place] tel:[phone] [facility] GI Symptoms or Concerns (chief complaint) Other hemorrhoids 2 Jg Crocker. [address], [place], [place], [address] , [place]. tel: [phone] Referring Provider: Referral Self, USE FOR SELF REFERRALS. [facility], [address] [address], [place], [address], [place] tel:[phone] [facility] GI Symptoms or Concerns (chief complaint) Anal skin tagInternal hemorrhoids 2 Narciso Plummer. [address], [facility] [facility], [address] , [place]. tel: [phone] Referring Provider: Referral Self, USE FOR SELF REFERRALS. [facility], [address] [address], [place], [id number], [place] tel:[phone] [facility] Gastrointestinal hemorrhage, unspecified 2 Karri Delgado. [address], [place], [place], [address] , [place]. [phone] [facility], [address] [address], [place], [id number], [place] tel:[phone] [facility] GI Symptoms or Concerns (chief complaint) HematocheziaMelena 2 Karri Delgado. [address], [place], [place], [address] , [place]. [phone] Referring Provider: Duglas Barker MD, [address] [place] [address], [address]. tel:[phone] [facility], [address] [address], [place], [address], [place] tel:[phone] [facility] Gastrointestinal hemorrhage, unspecified 1 Sabina Diaz. [address], [place], [place], [address] , [place]. tel: [phone] Referring Provider: Danny Ferro, [address], [place], [address] . tel:[phone] [facility], [address] [address], [place], [address], [place] tel:[phone] [facility] No Information 1 Karri Delgado. [address], [place], [place], [address] , [place]. tel: [phone] Referring Provider: Referral Self, USE FOR SELF REFERRALS. [facility], [address] [address], [place], [address], [place] tel:[phone] [facility] No Information 1 Cristina Mcmahon. [address], [place], [address] , [place]. tel: [phone] [facility], [address] [address], [place], [address], [place] tel:[phone] [facility] Gastrointestinal hemorrhage, unspecified gastrointestinal hemorrhage typeGastrointestina l hemorrhage, unspecified 1 Karri Delgado. [address] [facility] [address], [facility] [address], [place], [place], [address] , [place]. [phone] Referring Provider: Referral Self, USE FOR SELF REFERRALS. Telephone E&M III 21-30 Min HARPAL [facility], [address] [address], [place], [place], [address], [place] tel:[phone] [facility] GI Symptoms or Concerns (chief complaint) Gastrointestinal hemorrhage, unspecified gastrointestinal hemorrhage type 1 Karri Delgado. [address] [facility] [address], [facility] [address], [place], [place], [address] , [place]. [phone] Referring Provider: Edilia Heller MD , [address], [place], [address]. tel:[phone] [facility], [address] [address], [place], [place], [id number], [place] tel:[phone] [facility] No Information 1 Cristina Mcmahon. [address] [facility], [facility] [address], [place], [place], [address] , [place]. [phone] Family History Family Member Type Diagnosis Age At Onset Father Problem (finding) asthma Brother Problem (finding) alcoholism Father Problem (finding) GERD Immunizations Vaccine Date Status Comments SARS-COV-2 (COVID-19) vaccin e, mRNA, spike protein, LNP, bivalent booster, preservative free, 30 mcg/0.3 mL dose, dafne-sucrose formulation administered Note: [facility] bi-d irectional interface ; Source: Other Registry [...] Registry Payers Payer name Insurance type Covered alliance party ID Authordarius chiu(s) Chantale WEINER [id number] Social History Type Description Quantity Date Captured [...] Initially, she had had a colonoscopy in [place] that showed a questionable AVM in the [...] unknown etiology. 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 Subsequently, we performed an upper endoscopy on February 24, which showed no significant abnormalities. After much discussion, we pursued a PillCam, which showed a very questionable finding in the distal small bowel, but not an obvious bleeding point. Colonoscopy was repeated with the idea of possibly treating the angioectasia noted in [place]; however, after review of the pictures, this [...]
--- OUTSIDE RECORDS SUMMARY | 2023-12-29 03:53 | XMS_ITS | Clinical Summary ---
Author Organization [facility] Address [address] [address] Care Team Providers Care Retail Field Representative Name Role Phone Unavailable Primary Care Provider [...] for each transition of care or referral. [facility] Allergies Active Allergy Reactions Criticality Noted Date [...] 1978 Hep C Screening (Preventive Services) 1978 Mammogram 1978 HIV Screening (Preventive Services) 1994 Adult Preventive Visit 1996 DTaP/Tdap/Td (1 - Tdap) 1997 HepB (1) 1997 COVID-19 Vaccine ( - 2022-2 4 season) 2023 Cholesterol 2023 Influenza (#1) 2024 Zoster/Shingles (1 of 2) 2028 HPV [...]
== END 2023-12-26 07:44 | disposition home or self-care (01) ==
LOC: NFLDREF 12-29 03:51
PROVIDERS: PCP Family Medicine; Referring Provider Family Medicine; Visit Provider Family Medicine
DX: E78.5 Hyperlipidemia, unspecified (principal); I10 Essential (primary) hypertension; D64.9 Anemia, unspecified; Z83.49 Family history of other endocrine, nutritional and metabolic diseases
CPT/HCPCS: 80053; 80061; 81256; 82728; 83540; 83550

== ENCOUNTER 2024-06-08 10:00 | Outpatient (RCR) | payer MEDICAID, SELFPAY ==
--- NOTE | 2024-05-13 09:30 | PT.OPEX ---
PT [place] Out[facility] Eval PT [facility] Outpatient Eval Start: 05/13/24 08:05 Freq: Status: Active Protocol: Document 05/13/24 08:06 CRP (Rec: 05/13/24 09:29 CRP [id number]) E-signed By Jim Jimenez PT Physical Therapy Outpatient Evaluation Insurance Information Recert Due Date 08/11/24 Insurance Name Medicaid Medical Diagnosis Lumbar DDD Referring MD Dr Lal Subjective Subjective Pt reports that early Mar began having a new type of pain. Has been having Pain from R SI to R lateral hip. Can have times feeling fatigue into the R LE. Xrays of the hip seemed OK. Pt did look into exer for her hip flexor and core strengthening. These are some exer that she has done prior. Pain has not gotten better or worse lately. Has tried different mattresses and sleeping postures but nothing has helped. Lying down is the most painful. Especially turning in bed. Pain also noted when standing in one place and then moving out of this position. When trying to do straight leg raises exer she if fine doing the R LE but when she does the L she has increased R post hip pain. Clam shell exer is fine with and without resistance. Anti- inflammatories do not seem to help. PMHx: Chronic pain since age of 13. Is on gabapentin for fibromyalgia and chronic pain. Has had a hx of lumbar sciatica down R LE that was about 20 years ago. Within the last year she did go to [facility] due to bilat hip pain and pain down legs. 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 More recently closer to 5 hrs due to physical issues. Sits at a computer. 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 Ext mod dec with LBP, R SB darline dec with most pain at R, L SB min.mod dec, BIlat rot min/ mod dec with some R pain during L rotation. Hip ROM WNL bilat flex, ER, IR . Hip ext lacking 5 degrees bilat. SLR negative bilat - but gives recent hx that she had positive crossed SLR MMT: Myotomes WNL. Weakness bilaterally hip extension and abd with functional posturing. Poor lumbopelvic motor control Palpation: Myofascial tightness - high tone lumbar paraspinals and QLs Segmental testing: Painful hypomob L5 and S1 on R Assessment Assessment/Impression Pt presents to the clinic with R SI region and posterolateral hip pain that appears secondary to lumbar spine referral pain with underlying issues of central sensitization. Pts presentation is characterized by painful loss of lumbar spine ROM, lower quadrant weakness, hip stiffness, knee stiffness, myofascial involvement and painful segmental hypomobility of lumbar spine. Skilled PT is necessary to incorporate ther ex, nm andrea, manual therapy and pt education to decrease pain and improve functional mobility. Primary Functional Limitations Sleep Prolonged standing Walking greater than 15 minutes Transitional movements Plan of Care Rehabilitation Potential Good Physical Therapy Goals 1. Pt will be independent with HEP in 10 weeks. 2. Pt will sleep in own bed with 75% decrease in pain in 12 weeks. 3. Pt will walk greater than 25 minutes with 75% decrease in pain in 14-16 weeks. Coordination/Communication With Referral Source Treatment Plan/Direct Interventions Gait Training,Joint Mobilization,Manual Therapy, Neuromuscular Re-ed,Self-Care/ Home Management,Therapeutic Activities,Therapeutic Exercises Frequency/Duration 1 x/wk for 12 weeks Patient Will Be Discharged From Therapy Completion of LTG(s),Skills Plateau,Independent w/HEP, Independently Progressing Evaluation Billing Untimed Code Treatment Minutes 45 Complexity High Certification Information Initial Certification Date 05/13/24 Ending Certification Date 08/11/24 Provider Signature Required Yes Provider Signature Shows Agreement With POC & Medical Necessity Physician NPI Number Write NPI# Here Physician Comment/Change : Physician Signature & Date Requested Please Sign/Date Here
== END 2024-07-08 16:58 | disposition home or self-care (01) ==
PROVIDERS: PCP Family Medicine; Visit Provider Orthopaedic Surgery Sports Medicine
DX: M51.379 Other intervertebral disc degeneration, lumbosacral region without mention of lumbar back pain or lower extremity pain (principal); Z51.89 Encounter for other specified aftercare
CPT/HCPCS: 97110; 97140; 97163

== ENCOUNTER 2024-08-20 12:30 | Outpatient (RCR) | payer MEDICAID, SELFPAY ==
--- NOTE | 2024-07-08 15:43 | PT.OPEX ---
[facility] Out[facility] Eval Start: 07/08/24 11:15 Freq: Status: Active Protocol: Document 07/08/24 11:15 CRP (Rec: 07/08/24 15:39 CRP [id number]) E-signed By Jim Jimenez PT Physical Therapy Outpatient Evaluation Insurance Information Recert Due Date 10/06/24 Insurance Name Medicaid,are Medical Diagnosis Chronic Neck Pain Chronic Back Pain Referring MD Dr Garcia Subjective Subjective Reoccurring issues of numbness and tingling in hands and forearms. Pain down arms as well. 2 years ago had a flare . Has had Medex in the past for her neck and low back. In last 3 months numbness and arm sxs have returned to some degree. MRI has not showed any major issues. Has been told in the past may be a combo of neck and carpal tunnel. Pt does have neck pain but her bigger concern is the numbness and tingling. L more than R but can be both. Has hx of Fibromyalgia diagnosis that she has managed over the years with exer, rehab and home care assistant. Sxs may increase with forward position looking down - desk work. Numbness/tingling can interrupt her sleep. Does try to work on stretching that can help to some degree. Back at age 17 was told carpal tunnel. Attempted treatment but got progressively worse. Did consider surgery. Chose to work with chiropractor and this helped. Pain and strength definitely improved, tingling improved as well. Has needed to manage this over the years. Pain Comments Neck pain 11/17 Occupation Self employed Objective Other/Pertinent Objective Posture: Forward head Cervical ROM: Flex WNL with CT junction pain, Ext min dec, Bilat rot 50 deg, R SB 25 deg, L SB 10 deg with pain Shoulder ROM: Flex 125 deg bilat with upper trap pain, Abd 110 deg bilat with tingling into R UE, ER WNL bilat, Hand up back L L2, R sacrum FARHAT: + on R MMT: Mild hand weakness bilat . Shoulders and elbows WNL + ULNT bilat at full ER, 90 deg elbow flex and wrist ext Segmental testing: Prone testing: UPA mobs hypomob bilat O,C1 to C3. UPA mobs painful and hypomob C7-T3 bilat Assessment Assessment/Impression Pt presents to PT with a complex hx of chronic pain and nerve related sxs into bilateral UEs. Pts presentation is consistent with cervical spine mechanical dysfunction and associated pain, myofascial pain involvement of the upper quadrant, thoracic outlet syndrome and adverse neurodynamics of bilat UEs. Skilled PT is necessary to incorporate ther ex, nm andrea, manual therapy and pt education to decrease paresthesias, pain, and improve functional mobility. 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 Pt will be independent with HEP in 8 weeks. 2. Pt will complete self cares with 80% decrease in paresthesias and no pain in 10 weeks. 3. Pt will complete 45 minutes of upper body exercise with 75% decrease in UE paresthesias and no pain in 12 weeks. Coordination/Communication With Referral Source Treatment Plan/Direct Interventions Joint Mobilization,Manual Therapy,Neuromuscular Re-ed, Self-Care/Home Management, Therapeutic Activities, Therapeutic Exercises Frequency/Duration 1-2x/wk for 12 weeks Patient Will Be Discharged From Therapy Completion of LTG(s),Skills Plateau,Independent w/HEP, Independently Progressing Evaluation Billing Untimed Code Treatment Minutes 40 Complexity High Certification Information Initial Certification Date 07/08/24 Ending Certification Date 10/06/24 Provider Signature Required Yes Provider Signature Shows Agreement With POC & Medical Necessity Physician NPI Number Write NPI# Here Physician Comment/Change : Physician Signature & Date Requested Please Sign/Date Here
== END 2024-12-18 23:59 | disposition home or self-care (01) ==
PROVIDERS: PCP Family Medicine; Visit Provider Family Medicine
DX: M54.2 Cervicalgia (principal); M54.9 Dorsalgia, unspecified; G89.29 Other chronic pain; Z51.89 Encounter for other specified aftercare
CPT/HCPCS: 97110; 97140; 97163

== ENCOUNTER 2024-10-06 08:14 | Outpatient (CLI) | payer MEDICAID, SELFPAY | END 2024-10-06 08:15 | disposition home or self-care (01) | PROVIDERS: PCP Family Medicine; Visit Provider Family Medicine | DX: D64.9 Anemia, unspecified (principal); E78.5 Hyperlipidemia, unspecified; F41.9 Anxiety disorder, unspecified | CPT/HCPCS: 80053; 82728; 83540; 83550; 84443 ==

== ENCOUNTER 2024-11-10 14:45 | Outpatient (CLI) | payer MEDICAID, SELFPAY | END 2024-11-10 14:46 | disposition home or self-care (01) | PROVIDERS: PCP Family Medicine; Visit Provider Family Medicine | DX: R79.0 Abnormal level of blood mineral (principal); D75.1 Secondary polycythemia | CPT/HCPCS: 36415; 99195 ==

== ENCOUNTER 2024-12-02 06:11 | Day surgery (SDC) | payer MEDICAID, SELFPAY ==
[2024-12-02] VITALS (7 sets, daily range): BP systolic 123–139; BP diastolic 76–87; PULSE 75–91; RESP 12–18; TEMP 36.6–37.2; O2SAT 94–97; BMI 41.0
[2024-12-02] MEDS: BUPIVACAINE 0.5% 30 ML INJECTION (06:55)
[2024-12-02] MEDS: LIDOCAINE 1%-EPI 1:100,000 20 ML INFILTRATI (06:55)
[2024-12-02] MEDS: ETHYL CHLORIDE 1 APPLICATION 1 APPLIC TOPICAL (06:55)
[2024-12-02] MEDS: BACITRACIN OINTMENT BULK TUBE 1 APPLIC TOPICAL (07:38)
--- NOTE | 2024-12-02 09:22 | SUR.PREOP ---
SAME DAY SURGERY LOCAL INJECTION SITE VERIFICATION WAS PERFORMED BY SURGEON/PA AND PATIENT PRIOR TO LOCAL ANESTHETIC BEING INJECTED TO OPERATIVE SITE.
--- NOTE | 2024-12-04 15:55 | P.ORPRC_ITS ---
Procedure Note Date of procedure: 12/02/24 Procedure: PREOPERATIVE DIAGNOSIS: 1. Left carpal tunnel syndrome POSTOPERATIVE DIAGNOSIS: 1. Left carpal tunnel syndrome PROCEDURE: 1. Left open carpal tunnel release SURGEON: Savage Lal MD. CLINICAL DENTAL TECHNICIAN: Crow Pantoja PA-C ANESTHESIA: Local anesthetic (50:50 mixture of 1% lidocaine with epi and 0.5% marcaine plain) - 8ml total IMPLANTS: None EBL: 2 mL TOURNIQUET: None COMPLICATIONS: None evident INDICATIONS: The patient is a pleasant 44-year-old female who has experienced left hand numbess/tingling affecting the radial 3.5 digits for multiple months. It has progressively gotten worse. Nonoperative management has been tried and failed, and therefore surgery was recommended. DESCRIPTION OF PROCEDURE: Following a thorough discussion of risks, benefits, and alternatives consent was obtained and the operative extremity was marked. The patient was brought to the operating room and placed supine on the operating table. Local anesthesia induction was undertaken in preop holding. No antibiotics were administered as this was planned to be a local case only. Proper time-out was performed identifying proper patient, site, and procedure. The operative extremity was prepped and draped in the appropriate sterile fashion using ChloraPrep. An incision was made in line with the radial border of the ring finger beginning 1 cm distal to the distal wrist crease and progressing for another 2.5cm distal. Caution was taken to stay proximal to Concepcion's cardinal line. Sharp incision through the skin, subcutaneous tissue, and palmar fascia was performed. The thenar musculature was bluntly elevated off the transverse carpal ligament. The ligament was directly visualized, and divided sharply with a 15 blade. This was released from its most proximal to the most distal extent. Metzenbaum scissor was also utilized to release the fascia extension proximally. We confirmed complete release of the transverse carpal ligament. Closure was performed with 4-O nylon in interrupted fashion. Soft dressings were applied, and the patient was transferred to the recovery room in stable condition. PLAN: 1. Encourage elevation of the operative extremity. 2. Range of motion of the fingers and hand/wrist as tolerated. 3. Acetaminophen as needed for pain control. 4. Follow up with PA visit or nurse visit in 12-16 days for wound check and suture removal.
== END 2024-12-02 08:04 | disposition home or self-care (01) ==
LOC: OR 06:14
PROVIDERS: PCP Family Medicine; Visit Provider Orthopaedic Surgery Sports Medicine
PROC: (CPT 64721; principal; 2024-12-02 07:15)
DX: G56.02 Carpal tunnel syndrome, left upper limb (principal)
CPT/HCPCS: 64721; J0665

== ENCOUNTER 2024-12-21 09:42 | Outpatient (CLI) | payer MEDICAID, SELFPAY | END 2024-12-21 09:43 | disposition home or self-care (01) | LOC: NFLDREF 12-23 13:46 | PROVIDERS: PCP Family Medicine; Referring Provider Family Medicine; Visit Provider Family Medicine | DX: E78.5 Hyperlipidemia, unspecified (principal); I10 Essential (primary) hypertension | CPT/HCPCS: 80053; 80061 ==

== ENCOUNTER 2025-01-01 14:25 | Outpatient (CLI) | payer MEDICAID, SELFPAY | END 2025-01-01 14:26 | disposition home or self-care (01) | PROVIDERS: PCP Family Medicine; Visit Provider Family Medicine | DX: D75.1 Secondary polycythemia (principal) | CPT/HCPCS: 36415; 99195 ==

== ENCOUNTER 2025-01-19 14:45 | Outpatient (RCR) | payer MEDICAID, SELFPAY ==
--- NOTE | 2024-12-29 14:11 | OT.OPOE ---
OT Outpatient Ortho Eval OT Outpatient Ortho Eval* Start: 12/29/24 08:50 Freq: Status: Active Protocol: Document 12/29/24 08:50 CSS (Rec: 12/29/24 14:10 CSS [id number]) E-signed By Tamanna Morgan, OTR/L OT OP Ortho Eval Details Complexity Complexity Low Insurance Information Insurance [employer] Information Outpatient History/Precautions Current Condition/Medical Diagnosis Referring Provider Laila Joya PA-C Medical Diagnoses G56.02- carpal tunnel syndrome, left upper limb. 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 Pt notes she will have R carpal tunnel release in next few months. Pt notes she went to chiropractor several year ago to help with symptoms. Pt states L is nondominant hand. Pt notes no numbness and tingling in L hand. Pt notes some tenderness at incicison side. Pt notes weakness in thumb. She notes sometimes a tremor in thumb with certain grasp/pinch patterns; not consistent tremor. Pt notes her L hand feels tired at night; not painful but she can tell she's used it. Pt notes she has been icing and on an anti inflammatory drug which helps. Pt noes no swelling in L hand. Pain Assessment Pain Pain No Pain Comments L wrist rest: 0/10 with pressure: 1/10 Range of Motion and Strength Wrist Range of Motion and Strength Wrist Range of L wrist: WNL Motion and Strength R wrist: WNL Hand Pinch/Cotton Breeder Strength Hand Pinch/Cotton Breeder Strength Hand Pinch/Cotton Breeder Left Hand,Right Hand Strength Left Hand Cotton Breeder Strength 18 Position 1 in Elbow Flexion (lbs) Lateral Pinch 8 Strength (lbs) Right Hand Cotton Breeder Strength 29 Position 1 in Elbow Flexion (lbs) Lateral Pinch 11 Strength (lbs) OT Objective Data Observations/Posture/Limb Appearance Objective pinkness around incision, scar closed, some flaking Observations around scar Sensation Sensation Assessment denies numbness/tingling in L hand Summary Comments OT Problems Problems Problems Decreased Strength,Lifting,Gripping,Pinching Problems Comments help nephew get dressed; playing cards; cooking/meal prep; controlling remote control; clipping leashes onto dogs; walking dogs; Other Problems Opening Containers Patient Potential Excellent Occupational Therapy Treatment Plan - OP Potential Rehabilitation Excellent Potential Set Goals Goals Set with Yes Patient Goals Goals Goals to be met by Mar 23, 2025: 1) Pt will verbalize no tenderness or pain with ADLs/ IADLs in 2 consistent sessions. 2) Pt will increase L head golf professional strength to 20# or more in order to promote function in LUE. 3) Pt will verbalize compliance of HEP in order to meet goals. Treatment Plan Treatment Plan Evaluation,Edema Control,Iontophoresis with Dexamethasone Sodium Phosphate 1 mL (4mg per mL),Manual Therapy,Ultrasound,Wound Care/Scar Management, Therapeutic Exercise,Therapeutic Activities,Self Care/ Home Management,Education Expected Frequency 1-2x Week Expected Duration 12 weeks Home Program Home Program Home Program Initiated Home Program - Putty Squeezes - 3 x daily - 7 x weekly - 1 sets - Specifics 10 reps - Tip Pinch with Putty - 3 x daily - 7 x weekly - 1 sets - 10 reps - York Pinch with Putty - 3 x daily - 7 x weekly - 1 sets - 10 reps - 3-Point Pinch with Putty - 3 x daily - 7 x weekly - 1 sets - 10 reps - Seated Finger Extension with Putty - 3 x daily - 7 x weekly - 1 sets - 10 reps scar pad, scar massage, and compression glove Certification Certification Statement I Certify That: Therapy Services Provided,Therapy Plan Established, Therapy Plan Reviewed Certification Information Clinic ID # [id number] Initial 12/29/24 Certification Date Recertification Due 03/23/25 Date Provider Signature Yes Required Provider Signature POC & Medical Necessity Shows Agreement With Physician NPI Number Write NPI# Here Physician Comment/ Comment or Changes Change Physician Signature Please Sign/Date Here & Date Requested
--- NOTE | 2024-12-29 14:17 | OT.OPOE ---
OT Outpatient Ortho Eval OT Outpatient Ortho Eval* Start: 12/29/24 08:50 Freq: Status: Active Protocol: Document 12/29/24 08:50 CSS (Rec: 12/29/24 14:10 CSS [id number]) E-signed By Tamanna Morgan, OTR/L OT OP Ortho Eval Details Complexity Complexity Low Insurance Information Insurance [employer] Information Outpatient History/Precautions Current Condition/Medical Diagnosis Referring Provider Laila Joya PA-C Medical Diagnoses G56.02- carpal tunnel syndrome, left upper limb. 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 Pt notes she will have R carpal tunnel release in next few months. Pt notes she went to chiropractor several year ago to help with symptoms. Pt states L is nondominant hand. Pt notes no numbness and tingling in L hand. Pt notes some tenderness at incicison side. Pt notes weakness in thumb. She notes sometimes a tremor in thumb with certain grasp/pinch patterns; not consistent tremor. Pt notes her L hand feels tired at night; not painful but she can tell she's used it. Pt notes she has been icing and on an anti inflammatory drug which helps. Pt noes no swelling in L hand. Pain Assessment Pain Pain No Pain Comments L wrist rest: 0/10 with pressure: 1/10 Range of Motion and Strength Wrist Range of Motion and Strength Wrist Range of L wrist: WNL Motion and Strength R wrist: WNL Hand Pinch/Terminal Operations Manager Strength Hand Pinch/Terminal Operations Manager Strength Hand Pinch/Terminal Operations Manager Left Hand,Right Hand Strength Left Hand Terminal Operations Manager Strength 18 Position 1 in Elbow Flexion (lbs) Lateral Pinch 8 Strength (lbs) Right Hand Terminal Operations Manager Strength 29 Position 1 in Elbow Flexion (lbs) Lateral Pinch 11 Strength (lbs) OT Objective Data Observations/Posture/Limb Appearance Objective pinkness around incision, scar closed, some flaking Observations around scar Sensation Sensation Assessment denies numbness/tingling in L hand Summary Comments OT Problems Problems Problems Decreased Strength,Lifting,Gripping,Pinching Problems Comments help nephew get dressed; playing cards; cooking/meal prep; controlling remote control; clipping leashes onto dogs; walking dogs; Other Problems Opening Containers Patient Potential Excellent Assessment Assessment Assessment Pt is a 44 year old female who is referred to OT after CTR on L wrist. Pt is experiencing some weakness and minimal pain which are impacting her indep with ADLs/ IADLs. Pt is a good rehab candidate as she is motivated and pleasant. She would benefit from skilled OT to manage scar, work on strengthening, and edema management to maximize indep with ADLs/IADLs. Occupational Therapy Treatment Plan - OP Potential Rehabilitation Excellent Potential Set Goals Goals Set with Yes Patient Goals Goals Goals to be met by Mar 23, 2025: 1) Pt will verbalize no tenderness or pain with ADLs/ IADLs in 2 consistent sessions. 2) Pt will increase L home performance consultant strength to 20# or more in order to promote function in LUE. 3) Pt will verbalize compliance of HEP in order to meet goals. Treatment Plan Treatment Plan Evaluation,Edema Control,Iontophoresis with Dexamethasone Sodium Phosphate 1 mL (4mg per mL),Manual Therapy,Ultrasound,Wound Care/Scar Management, Therapeutic Exercise,Therapeutic Activities,Self Care/ Home Management,Education Expected Frequency 1-2x Week Expected Duration 12 weeks Home Program Home Program Home Program Initiated Home Program - Putty Squeezes - 3 x daily - 7 x weekly - 1 sets - Specifics 10 reps - Tip Pinch with Putty - 3 x daily - 7 x weekly - 1 sets - 10 reps - York Pinch with Putty - 3 x daily - 7 x weekly - 1 sets - 10 reps - 3-Point Pinch with Putty - 3 x daily - 7 x weekly - 1 sets - 10 reps - Seated Finger Extension with Putty - 3 x daily - 7 x weekly - 1 sets - 10 reps scar pad, scar massage, and compression glove Certification Certification Statement I Certify That: Therapy Services Provided,Therapy Plan Established, Therapy Plan Reviewed Certification Information Clinic ID # [id number] Initial 12/29/24 Certification Date Recertification Due 03/23/25 Date Provider Signature Yes Required Provider Signature POC & Medical Necessity Shows Agreement With Physician NPI Number Write NPI# Here Physician Comment/ Comment or Changes Change Physician Signature Please Sign/Date Here & Date Requested
== END 2025-05-19 23:59 | disposition home or self-care (01) ==
PROVIDERS: PCP Family Medicine; Visit Provider Physician Assistant Surgical
DX: G56.02 Carpal tunnel syndrome, left upper limb (principal); Z51.89 Encounter for other specified aftercare
CPT/HCPCS: 97035; 97110; 97140; 97165; 97530; 97535; X5282

== ENCOUNTER 2025-01-20 06:17 | Day surgery (SDC) | payer MEDICAID, SELFPAY ==
[2025-01-20] VITALS (10 sets, daily range): BP systolic 132–148; BP diastolic 66–94; PULSE 82–92; RESP 16–18; TEMP 36.7–37.1; O2SAT 93–97; BMI 40.8
[2025-01-20] MEDS: LIDOCAINE 1%-EPI 1:100,000 20 ML INFILTRATI (07:05)
[2025-01-20] MEDS: ETHYL CHLORIDE 1 APPLICATION 1 APPLIC TOPICAL (07:05)
[2025-01-20] MEDS: BUPIVACAINE 0.5% 30 ML INJECTION (07:05)
--- NOTE | 2025-01-20 07:27 | SUR.PREOP ---
SAME DAY SURGERY LOCAL INJECTION SITE VERIFICATION WAS PERFORMED BY SURGEON/PA AND PATIENT PRIOR TO LOCAL ANESTHETIC BEING INJECTED TO OPERATIVE SITE.
--- NOTE | 2025-01-20 07:37 | PM.ORPRC ---
Procedure Note Date of procedure: 01/20/25 Procedure: PREOPERATIVE DIAGNOSIS: 1. Right carpal tunnel syndrome POSTOPERATIVE DIAGNOSIS: 1. Right carpal tunnel syndrome PROCEDURE: 1. Right open carpal tunnel release SURGEON: Savage Lal MD. PHOTOGRAPHIC DOUBLE: Crow Pantoja PA-C ANESTHESIA: Local anesthetic (50:50 mixture of 1% lidocaine with epi and 0.5% marcaine plain) - 10ml total IMPLANTS: None EBL: 2 mL TOURNIQUET: None COMPLICATIONS: None evident INDICATIONS: The patient is a pleasant 44-year-old female who has experienced right hand numbess/tingling affecting the radial 3.5 digits for multiple months. It has progressively gotten worse. Nonoperative management has been tried and failed, and therefore surgery was recommended. DESCRIPTION OF PROCEDURE: Following a thorough discussion of risks, benefits, and alternatives consent was obtained and the operative extremity was marked. The patient was brought to the operating room and placed supine on the operating table. Local anesthesia induction was undertaken in preop holding. No antibiotics were administered as this was planned to be a local case only. Proper time-out was performed identifying proper patient, site, and procedure. The operative extremity was prepped and draped in the appropriate sterile fashion using ChloraPrep. An incision was made in line with the radial border of the ring finger beginning 1 cm distal to the distal wrist crease and progressing for another 2.5cm distal. Caution was taken to stay proximal to Concepcion's cardinal line. Sharp incision through the skin, subcutaneous tissue, and palmar fascia was performed. The thenar musculature was bluntly elevated off the transverse carpal ligament. The ligament was directly visualized, and divided sharply with a 15 blade. This was released from its most proximal to the most distal extent. Metzenbaum scissor was also utilized to release the fascia extension proximally. We confirmed complete release of the transverse carpal ligament. Closure was performed with 4-O nylon in interrupted fashion. Soft dressings were applied, and the patient was transferred to the recovery room in stable condition. PLAN: 1. Encourage elevation of the operative extremity. 2. Range of motion of the fingers and hand/wrist as tolerated. 3. Ibuprofen/acetaminophen and/or oxycodone as needed for pain control. 4. Follow up with PA visit or nurse visit in 12-16 days for wound check and suture removal.
== END 2025-01-20 08:07 | disposition home or self-care (01) ==
LOC: OR 06:18
PROVIDERS: PCP Family Medicine; Visit Provider Orthopaedic Surgery Sports Medicine
PROC: (CPT 64721; principal; 2025-01-20 07:15)
DX: G56.01 Carpal tunnel syndrome, right upper limb (principal)
CPT/HCPCS: 64721; J0665

== ENCOUNTER 2025-02-01 09:40 | Outpatient (CLI) | payer MEDICAID, SELFPAY | END 2025-02-01 09:41 | disposition home or self-care (01) | LOC: NFLDREF 02-02 14:14 | PROVIDERS: PCP Family Medicine; Referring Provider Family Medicine; Visit Provider Family Medicine | DX: I10 Essential (primary) hypertension (principal); R79.89 Other specified abnormal findings of blood chemistry; D75.1 Secondary polycythemia | CPT/HCPCS: 80053 ==

== ENCOUNTER 2025-02-04 10:45 | Outpatient (CLI) | payer MEDICAID, SELFPAY | END 2025-02-04 10:46 | disposition home or self-care (01) | PROVIDERS: PCP Family Medicine; Visit Provider Family Medicine | DX: D75.1 Secondary polycythemia (principal) | CPT/HCPCS: 36415; 85018; 99195 ==

== ENCOUNTER 2025-03-02 17:33 | Outpatient (CLI) | payer MEDICAID, SELFPAY ==
--- NOTE | 2025-03-02 17:40 | CRLHL7_ITS ---
For Patients: As a result of the Century Cures Act, medical imaging exams and procedure reports are released immediately into your electronic medical record. You may view this report before your referring provider. If you have questions, please contact your health care provider. INDICATION: BILATERAL SCREENING MAMMOGRAM, ASYMPTOMATIC 44 Y/O F COMPARISON: 01/01/23, 11/15/21, 05/27/19 TECHNIQUE: Digital mammogram in CC and MLO projections including computer-aided detection (CAD) and tomosynthesis. BREAST COMPOSITION: There are scattered areas of fibroglandular density. FINDINGS: No suspicious findings. ASSESSMENT: BI-RADS 1 Negative RECOMMENDATION: Annual screening mammogram. A lay language report of this examination will be provided to the patient. Dictated by: Madeleine Mann MD @ 03/03/2025 13:22:53 (Electronically Signed)
== END 2025-03-02 17:34 | disposition home or self-care (01) ==
LOC: MAMMO 17:33
PROVIDERS: PCP Family Medicine; Visit Provider Family Medicine
DX: Z12.31 Encounter for screening mammogram for malignant neoplasm of breast (principal); Z48.89 Encounter for other specified surgical aftercare; G56.01 Carpal tunnel syndrome, right upper limb; Z51.89 Encounter for other specified aftercare
CPT/HCPCS: 77063; 77067; 97035; 97110; 97140; 97165; 97530; X5282

== ENCOUNTER 2025-03-03 07:53 | Outpatient (CLI) | payer MEDICAID, SELFPAY | END 2025-03-03 07:54 | disposition home or self-care (01) | LOC: INJ CL 07:53 | PROVIDERS: PCP Family Medicine; Visit Provider Nurse Anesthetist, Certified Registered | DX: M17.11 Unilateral primary osteoarthritis, right knee (principal); M25.561 Pain in right knee | CPT/HCPCS: 64454 ==

== ENCOUNTER 2025-03-17 07:10 | Outpatient (CLI) | payer MEDICAID, SELFPAY | END 2025-03-17 07:11 | disposition home or self-care (01) | LOC: INJ CL 07:11 | PROVIDERS: PCP Family Medicine; Visit Provider Nurse Anesthetist, Certified Registered | DX: M17.11 Unilateral primary osteoarthritis, right knee (principal) | CPT/HCPCS: 64624; J0665; J0702; J1885 ==

== ENCOUNTER 2025-05-05 06:58 | Outpatient (CLI) | payer MEDICAID, SELFPAY | END 2025-05-05 06:59 | disposition home or self-care (01) | LOC: INJ CL 06:59 | PROVIDERS: PCP Family Medicine; Visit Provider Nurse Anesthetist, Certified Registered | DX: M17.12 Unilateral primary osteoarthritis, left knee (principal); M25.562 Pain in left knee | CPT/HCPCS: 64454 ==

== ENCOUNTER 2025-05-19 06:44 | Outpatient (CLI) | payer MEDICAID, SELFPAY | END 2025-05-19 06:45 | disposition home or self-care (01) | LOC: INJ CL 06:45 | PROVIDERS: PCP Family Medicine; Visit Provider Nurse Anesthetist, Certified Registered | DX: M17.12 Unilateral primary osteoarthritis, left knee (principal) | CPT/HCPCS: 64624; J0665; J0702; J1885 ==